=== PATIENT | female | born 1935 | race Caucasian/White ===

== ENCOUNTER → 2024-07-06 | Outpatient (CLI) | payer MEDICARE, SELFPAY ==
[2024-07-06 15:17] LABS: Alanine Aminotransferase 10 U/L (10-49); Albumin, Serum 4.3 gm/dL (3.4-4.8); Albumin/Globulin Ratio 1.9 (1.2-2.2); Alkaline Phosphatase 103 U/L (46-116); Anion Gap 2 (7-16); Aspartate Amino Transferase 25 U/L (0-34); BUN/Creatinine Ratio 18 Ratio (12-20); Bilirubin,Total 0.5 mg/dL (0.3-1.2); Blood Urea Nitrogen 23 mg/dL (9-23); Calcium 10.2 mg/dL (8.3-10.6); Calcium (Corrected) 10.2 mg/dL (8.5-10.1); Carbon Dioxide 32.7 mMol/L (20.0-31.0); Chloride 103 mMol/L (98-107); Creatinine (Component) 1.3 mg/dL (0.6-1.3); Globulin 2.3 gm/dL (2.3-3.5); Glucose 99 mg/dL (74-106); Osmolality,Calculated 279 (275-295); Potassium 4.9 mMol/L (3.4-5.1); Sodium 138 mMol/L (136-145); Total Protein 6.6 gm/dL (5.7-8.2); eGFR 40 See Note
== END | disposition home or self-care (01) ==
LOC: CDIM 13:30 → COPL 13:42
PROVIDERS: PCP Internal Medicine; Referring Provider Internal Medicine; Visit Provider Internal Medicine
DX: N18.9 Chronic kidney disease, unspecified (principal)
CPT/HCPCS: 36415; 80053

== ENCOUNTER 2024-12-03 22:46 | Inpatient (IN) | payer MEDICARE, SELFPAY ==
[2024-12-03 22:59] VITALS: BP 182/80; PULSE 69; RESP 16; TEMP 36.9; O2SAT 95
--- NOTE | 2024-12-03 23:29 | EDNOTE_ITS ---
Altered Mental Status RME/HPI General Chief Complaint: Altered Mental Status Stated Complaint: BP HIGH, CONFUSED PAST 2 DAYS Time Seen by Provider: 12/03/24 23:35 Arrival date/time: 12/03/24 22:46 RME / HPI RME / HPI narrative: This section includes all my notes and documentations, including HPI, PE, and ED course. Cristopher Guillen MD HPI: 89yo female with a history of Afib on Coumadin, pacemaker brought in by her son presents to the ED for possible AMS, this Wednesday night. Patient's son states he left on Wednesday night to go [employer], reporting he called the patient yesterday (Wednesday) at 1830 and felt she was off . When he got home to the patient at 1900 yesterday, he found the patient to be confused and answering questions incorrectly. He states the patient's symptoms were worsening today. Patient communicates that she is having trouble saying what she wants to say. Son states the patient can normally take care of herself and ambulatory and is able to communicate normally. No fever, chills or an other associated symptoms. No other complaints reported. ROS: All negative except as documented in HPI. Physical Exam: General: Alert. Uncertain about orientation. Probable aphasia noted. Eyes: Conjunctivae and lids clear. EOMI. PERRL. ENT: No nasal congestion. Pharynx normal. Tympanic membrane normal bilaterally. Neck: Supple. No carotid bruit. No JVD. Heart: Irregularly irregular. Lungs: No respiratory distress. Good air movement. No rhonchi, wheezing, rales. Abdomen: Soft and nontender. Back: No CVA tenderness. Legs: No clubbing, cyanosis, edema. Skin: Warm and dry. Neuro: Alert and oriented X 3. Cranial Nerves II-XII grossly intact. No peripheral motor deficits. I reviewed all diagnostic test results. My interpretation of the EKG is paced rhythm (68 bpm). Cristopher Guillen MD My review of the CT head report is large area of edema in the left frontal lobe. My review of the CT angio head and neck report is no cerebral large vessel arterial occlusions or thrombus. Blood tests unremarkable. Urine specimen pending. At this point, diagnoses include left frontal lobe ischemic stroke or mass. Patient remained stable. I discussed the case with our teleneurologist and hospitalist. About the presentation and exam and diagnostics and treatments here. And need of further care in the hospital. Will accept the patient. Cristopher Guillen MD Related Data Home Medications ?Medication ?Instructions ?Recorded ?Confirmed pravastatin 40 mg tablet 40 mg PO HS Hypercholesterol emia 10/22/09 12/13/18 (Pravachol) ##0 MULTIVITAMIN (MULTI VITAMIN DAILY) 1 tab PO QDAY Suppl ements ##0 08/23/13 12/13/18 irbesartan 300 mg tablet (Avapro) 300 mg PO QDAY Hyper tension #0 tabs 08/23/13 12/13/18 warfarin 7.5 mg tablet (Coumadin) 7.5 mg PO QDAY #0 ta bs 06/17/17 12/13/18 biotin 5,000 mcg sublingual tablet 5,000 mcg sublingua l QDAY 11/15/18 12/13/18 furosemide 40 mg tablet 40 mg PO QDAY 11/15/1812/13 hydrocodone 5 mg-acetaminophen 325 1 tab PO .prn PRN 0 11/15/18 12/13/18 mg tablet spironolactone 25 mg tablet 25 mg PO QDAY 11/15/1810/28 Allergies Allergy/AdvReac Type Severity Reaction Status Date / Time NKA* Allergy Uncoded 12/13/18 15:15 Review of Systems Review of Systems Systems Reviewed: All systems reviewed, normal except as documented Past Medical History Past Medical History CARDIAC: Negative Congestive Heart Failure RESPIRATORY: Negative Chronic Obstructive Pulmonary Disease (COPD) GENITOURINARY: Positive Renal Disease ENDOCRINE: Negative Diabetes Mellitus Type 1 or Diabetes Mellitus Type 2 Social History SMOKING STATUS: Former smoker ED Exam Narrative Physical exam: As noted in HPI. Course Course Course Narrative: Stroke alert initiated at 2329. Quality Measures Suspected type of Stroke: Acute Ischemic Tenecteplase given: Reason(s) TPA not given: Use of NOAC (eliquis, xarelto, or pradaxa) not given stroke Orders Category Date Time Status Bedside Blood Glucose NOW Care 12/03/24 23:30 Active COVID-19 Screening Questionnaire NOW Care 12/04/24 00:42 Active Hide Examiner NOW Care 12/03/24 23:30 Active Continuous Pulse Oximetry NOW Care 12/03/24 23:30 Completed Decision to Admit X1 Care 12/04/24 00:42 Completed EKG (ED ONLY) *Do not use* NOW Care 12/03/24 23:30 Completed In and Out Catheter NEEDED Care 12/03/24 23:30 Active Insert IV NOW Care 12/03/24 23:30 Active NIH Stroke Scale now Care 12/03/24 23:30 Active NPO NOW Care 12/03/24 23:30 Active Nurse Swallow Screen x1 Care 12/03/24 23:30 Active Consult to Neurology / Tele-Neurology Routine Cons 12/03/24 23:[address] angio stroke protocol Stat Exams 12/03/24 23:[address] stroke protocol Stat Exams 12/03/24 23:30 Completed EKG (ED Only) Stat Exams 12/03/24 23:30 Ordered XR chest 1V portable Stat Exams 12/03/24 23:29 Taken Arterial Blood Gas Stat Lab 12/04/24 00:19 Completed B-Type Natriuretic Peptide Stat Lab 12/03/24 23:30 Completed CBC Stat Lab 12/03/24 23:30 Completed Comprehensive Metabolic Panel Stat Lab 12/03/24 23:30 Completed Free T4 (Free Thyroxine) Stat Lab 12/03/24 23:30 Completed Magnesium Stat Lab 12/03/24 23:30 Completed Partial Thromboplastin Time Stat Lab 12/03/24 23:30 Completed Prothrombin Time with INR Stat Lab 12/03/24 23:30 Completed TSH [Thyroid Stimulating Hormone] Stat Lab 12/03/24 23:30 Completed Troponin I Stat Lab 12/03/24 23:30 Completed Urinalysis Stat Lab 12/03/24 23:30 Ordered Urine Culture Stat Lab 12/03/24 23:30 Ordered Labetalol IV [Trandate IV] Med 12/03/24 23:29 Active 10 mg IVP Q15M PRN Ondansetron Inj [Zofran Inj] Med 12/03/24 23:29 Active 4 mg IVP Q4HR PRN Sodium Chloride 0.9% 1000 ml [Ns] 1,000 ml Med 12/03/24 23:30 Active IV X1 Oxygen Delivery NOW RT 12/03/24 23:30 Active Vital Signs Vital signs: Vital Signs Temperature 98.5 F 12/03/24 22:59 Pulse Rate 69 12/03/24 22:59 Respiratory Rate 16 12/03/24 22:59 Blood Pressure 182/80 H 12/03/24 22:59 Pulse Oximetry (%) 95 05/25/25 22:59 Oxygen Delivery Method Room Air 12/03/24 22:59 Altered Mental Status MDM Narrative MDM Narrative:: Scribe Attestation: 12/03/24 Ayanna Castro am scribing for and in the presence of Dr. Guillen. 89yo female with a history of aFib, pacemaker brought in by her son presents to the ED for AMS. Patient's son states he left on Wednesday night to go [facility], reporting he called the patient yesterday at 1830 and felt she was off . When he got home to the patient at 1900 yesterday, he found the patient to be somewhat confused and occasionally answering questions correctly. He states the patient's symptoms were worsening today and the patient was unable to get her words out, so he brought her in for evaluation. Son states the patient can normally take care of herself and is able to communicate normally. No fever, chills or an other associated symptoms. No other complaints reported. Patient data External records reviewed:: [facility] previous records (Per chart review, patient has no previous ED visits or admissions to this facility.) Clinical information provided by:: family Social determinants that could affect healthcare access:: none Patient has the following chronic illnesses:: aFib, pacemaker How is presenting disease/condition affected by chronic disease/condition?: uneffected by Evaluation data The following diagnostics were reviewed and interpreted by me:: lab results, radiology exam(s) and EKG tracing(s) (Paced rhythm (68 bpm). Cristopher Guillen MD) Lab and/or radiology exams considered but not ordered:: none Interpretation Summary: I reviewed all diagnostic test results. My interpretation of the EKG is paced rhythm (68 bpm). Cristopher Guillen MD My review of the CT head report is large area of edema in the left frontal lobe. My review of the CT angio head and neck report is no cerebral large vessel arterial occlusions or thrombus. Blood tests unremarkable. Urine specimen pending. Medications / Prescriptions Medications or Prescriptions considered but not ordered:: none Medication administrations:: Medication Administration History Sodium Chloride (Ns) 1,000 mls @ 100 mls/hr IV X1 ONE Stop: 12/04/24 09:29 Last Admin: 12/04/24 00:24 Dose: 100 mls/hr Documented By: CVL Labetalol HCl (Labetalol Inj 5 Mg/Ml Vial 20 Ml) 10 mg IVP Q15M PRN PRN Reason: HYPER Last Admin: 12/04/24 00:04 Dose: 10 mg Documented By: CVL Ondansetron HCl (Ondansetron Inj 2 Mg/Ml Inj 2 Ml) 4 mg IVP Q4HR PRN PRN Reason: NAUSEA OR VOMITING Stop: 01/02/25 23:28 IV fluid Consultations Consultation(s) initiated? (list below): Yes Consultation #1 (Physician, Specialty, Details): I discussed the case with our telehealth neurologist. About the presentation and exam and diagnostics and treatments here. Recommended hospitalization for further care. Time: 00:05 Diagnosis Differential diagnosis altered mental status: altered mental status, delirium, dementia, hypoglycemia, hyponatremia, subarachnoid hemorrhage, sepsis and other (CVA, TIA, [employer] tumor) Most likely diagnosis given after review of the tests above:: [employer] tumor versus ischemic stroke Admission Indicated Admission indicated?: indicated Explain why admission is indicated or not indicated:: [employer] tumor versus ischemic stroke Admission Request Was there a request for admission?: Yes Admission Attestation Admission request attestation: Discussed case with Hospitalist service regarding admission. Discussed patients ED course, exam findings, labs, and radiology results. The Hospitalist [agrees] to accept the patient for admission. Disposition Plan Disposition Plan: Admit Critical Care Time Critical Care Time Critical Care Time: Yes Total Critical Care Time (min.): 45 Attestation: Due to a high probability of clinically significant, life threatening deterioration, the patient required my highest level of preparedness to intervene emergently and I personally spent this critical care time directly and personally managing the patient. This critical care time included obtaining a history; examining the patient; ordering and review of studies; arranging urgent treatment with development of a management plan; evaluation of patient's response to treatment; frequent reassessment; and discussions with family and other providers. It was exclusive of separately billable procedures and treating other patients and teaching time. Cristopher Guillen MD Discharge Plan Plan Patient Disposition: Admit Acute Care w/in Hospital Prescriptions/Referrals Prescriptions/Med Rec: No Action furosemide 40 mg tablet 40 mg PO QDAY spironolactone 25 mg tablet 25 mg PO QDAY biotin 5,000 mcg tablet, sublingual 5,000 mcg SUBLINGUAL QDAY hydrocodone-acetaminophen 5-325 mg tablet 1 tab PO .prn PRN pravastatin [Pravachol] 40 MG tablet 40 mg PO HS Qty: 0 irbesartan [Avapro] 300 MG tablet 300 mg PO QDAY Qty: 0 MULTIVITAMIN (MULTI VITAMIN DAILY) 1 EACH tablet 1 tab PO QDAY Qty: 0 warfarin [Coumadin] 7.5 MG tablet 7.5 mg PO QDAY Qty: 0 Referrals: Serenity Ferrari MD [Primary Care Provider] - In 1 week Problem List Clinical Impression: Stroke-like symptoms Patient/Caregiver Discharge Instructions Print Language: Kittitian Stand Alone Forms: Carol Award Info., Patient Portal Info Letter
--- NOTE | 2024-12-03 23:29 | XR_ITS ---
Examination: AP chest single view Technique one AP portable semiupright chest single view Date and time: December 04, 2024 0013 hours Comparison August 02, 2013 INDICATIONS: Shortness of breath today. FINDINGS: Mild CHF Moderate enlargement cardiac contour Prominent vascular congestion with early pulmonary edema Stable nodule in the right upper lobe Ventricular cardiac leads satisfactory position Prominent osteopenia IMPRESSION: Mild CHF
--- NOTE | 2024-12-03 23:30 | XR_ITS ---
Examination: CTA carotids with intravenous contrast CTA brain, head with intravenous contrast. 2-D sagittal, coronal reconstructions. 3-D reconstructions. Exam date and time: December 03, 2024 at 11:45 PM INDICATIONS: Stroke alert, onset focal neurologic deficit today CTDI: vol (mGy) 11.9 DLP: (mGycm) 432 Technique: Multiple CTA axial brain, head carotid images post intravenous contrast injection 75 cc, [id number]. 2-D sagittal, coronal reconstructions. 3-D reconstructions, 3-D post processing including vascular maximum intensity projection images. Low dose protocols were performed. One or more of the following dose reduction techniques were used; automated exposure control, adjustment of the mA and/or KV according to patient size, use of iterative reconstruction technique. Findings: Poorly defined left thyroid nodules History calcification right carotid bifurcation, 70% plus stenosis right carotid bifurcation origin right internal carotid artery 40% stenosis left carotid bifurcation origin left internal carotid artery Codominant vertebral arteries with no critical stenoses No cerebral large vessel arterial occlusions or thrombus The large area of edema in the left frontal lobe does not demonstrate definite abnormal enhancement IMPRESSION: 70% plus stenosis right carotid bifurcation origin right internal carotid artery 40% stenosis left carotid bifurcation origin left internal carotid artery No cerebral large vessel arterial occlusions or thrombus
--- NOTE | 2024-12-03 23:30 | XR_ITS ---
Examination: CT brain head without contrast. 2-D sagittal coronal reconstructions Date and time of exam:December 03, 2024 1140 hours INDICATIONS: Stroke alert, onset focal neurologic deficit today and yesterday CTDI: vol (mGy):51.6 DLP: (mGycm):954 Technique: Multiple CT axial sections of the brain have been obtained, 5 mm slice thickness. Contrast has not been administered. 2-D sagittal, coronal reconstructions have been obtained Low dose protocols were performed. One or more of the following dose reduction techniques were used; automated exposure control, adjustment of the mA and/or KV according to patient size, use of iterative reconstruction technique. Findings: No significant ventricular enlargement. Large area of edema in the left frontal lobe depressing the left frontal horn, axial image 71 No mass effect or midline shift Basal cisterns are not remarkable. Fourth ventricle is midline. Cranial vault intact. Impression: Large area of edema in the left frontal lobe, differential including acute infarct, underlying neoplastic lesion not excluded Recommend brain MR I follow-up pre and postcontrast
--- NOTE | 2024-12-03 23:32 | PC.NURSE ---
Case [id number]/03/2024 23:31:49 [facility] Case # [id number] has been created.
[2024-12-03 23:58] VITALS: PULSE 70
[2024-12-03 23:59] VITALS: BP 201/103; PULSE 71; RESP 20; O2SAT 91
[2024-12-04] VITALS (14 sets, daily range): BP systolic 125–201; BP diastolic 47–103; PULSE 70–106; RESP 18–92; TEMP 36.1–36.3; O2SAT 93–99; BMI 13.0
[2024-12-04] MEDS: LABETALOL INJ 5 MG/ML VIAL 20 ML 10 MG IVP ×2 (00:04→05:39)
--- NOTE | 2024-12-04 00:06 | PD.TNEURO ---
Tele Neuro Consultation Consultation Date 12/04/24 Most Recent Vital Signs Last Vital Signs Temp 98.5 F 12/03/24 22:59 Pulse 71 12/03/24 23:59 Resp 20 12/03/24 23:59 BP 201/103 H 12/03/24 23:59 Pulse Ox 91 L 12/03/24 23:59 O2 Del Method Room Air 12/03/24 23:59 Consultation Narrative [facility] TeleNeurology Consult Services Patient Name:???Kathy Laird Date of :???[id number] Identification Number:??? Date of Service:???12/03/2024 23:31:49 Diagnosis:?I63.89 - Cerebrovascular accident (CVA) due to other mechanism ([facility]) Impression: ?1. Left frontal lobe lesion ?- LNW >24h ?- CTH with large area of edema in Left frontal lobe differential includes malignancy and subacute ischemic stroke, MRI will help confirm. No significant midline shift ?- no hx of stroke ?- .cta R carotid 70% and L carotid bifurcation 40%, no LVO ? Our recommendations are outlined below. Recommendations: ? Stroke/Telemetry Floor ? Neuro Checks (Q4) ? Bedside Swallow Eval ? DVT Prophylaxis ? IV Fluids, Normal Saline ? Head of Bed 30 Degrees ? Euglycemia and Avoid Hyperthermia (PRN Acetaminophen) ?routine MRI brain with and without contrast ?a1c, lipid panel ?PT/OT/speech consult Sign Out: ? Discussed with Emergency Department Provider Advanced Imaging: CTA Head and Neck Completed. LVO:No Patient is not a candidate for ROMEO Metrics: Last Known Well: Unknown Dispatch Time: 12/03/2024 23:31:49 Arrival Time: 12/03/2024 22:46:00 Initial Response Time: 12/03/2024 23:37:03Symptoms: speech change. Initial patient interaction: 12/03/2024 23:39:01 NIHSS Assessment Completed: 12/03/2024 23:50:08Patient is not a candidate for Thrombolytic. Thrombolytic Medical Decision: 12/03/2024 23:39:01Patient was not deemed candidate for Thrombolytic because of following reasons: LKW outside 4.[address] Head: I personally reviewed all the CT images that were available to me and it showed: large area of edema in Left frontal lobe. Primary Provider Notified of Diagnostic Impression and Management Plan on: 12/04/2024 00:04:42 History of Present Illness:Patient is a 89 year old Female. Patient was brought by private transportation with symptoms of speech change. Kathy Laird is an 89yo woman pmh afib, pacemaker, renal cancer s/p nephrectomy, bladder cancer, She was brought to the ER by her son because she has not been acting normally the last two days. Patient says she is having difficulty finding words. She also has a new Right sided facial droop. No history of stroke. Past Medical History: ?There is no history of Diabetes Mellitus ?There is no history of Atrial Fibrillation ?There is no history of Stroke ?There is no history of Seizures Medications: Anticoagulant use:??Yes?coumadin No Antiplatelet use Reviewed EMR for current medications Allergies:? Reviewed Social History: Smoking: No Alcohol Use: No Drug Use: No Family History: There is no family history of premature cerebrovascular disease pertinent to this consultation ROS : 14 Points Review of Systems was performed and was negative except mentioned in HPI. Past Surgical History: There Is No Surgical History Contributory To Today?s Visit Examination: BP(182/80),?Pulse(69), 1A: Level of Consciousness - Alert; keenly responsive?+ 0 1B: Ask Month and Age - Both Questions Right?+ 0 1C: Blink Eyes & Squeeze Hands - Performs Both Tasks?+ 0 2: Test Horizontal Extraocular Movements - Normal?+ 0 3: Test Visual Chatterjee - No Visual Loss?+ 0 4: Test Facial Palsy (Use Grimace if Obtunded) - Minor paralysis (flat nasolabial fold, smile asymmetry)?+ 1 5A: Test Left Arm Motor Drift - No Drift for 10 Seconds?+ 0 5B: Test Right Arm Motor Drift - No Drift for 10 Seconds?+ 0 6A: Test Left Leg Motor Drift - No Drift for 5 Seconds?+ 0 6B: Test Right Leg Motor Drift - No Drift for 5 Seconds?+ 0 7: Test Limb Ataxia (FNF/Heel-Brush) - No Ataxia?+ 0 8: Test Sensation - Normal; No sensory loss?+ 0 9: Test Language/Aphasia - Mild-Moderate Aphasia: Some Obvious Changes, Without Significant Limitation?+ 1 10: Test Dysarthria - Normal?+ 0 11: Test Extinction/Inattention - No abnormality?+ 0 NIHSS Score:?2 NIHSS Free Text :?R NLF. Pre-Morbid Modified [place] Scale:0 Points = No symptoms at all Spoke with :?ER physician This consult was conducted in real time using interactive audio and video technology. Patient was informed of the technology being used for this visit and agreed to proceed. Patient located in hospital and provider located at home/office setting. Patient is being evaluated for possible acute neurologic impairment and high probability of imminent or life-threatening deterioration. I spent total of 26 minutes providing care to this patient, including time for face to face visit via telemedicine, review of medical records, imaging studies and discussion of findings with providers, the patient and/or family. Dr Aravind So [facility] For Inpatient follow-up with [facility] physician please call [facility] at . As we are not an outpatient service for any post hospital discharge needs please contact the hospital for assistance. If you have any questions for the [facility] physicians or need to reconsult for clinical or diagnostic changes please contact us via [facility] at .
[2024-12-04 00:24] LABS: Basophils # (Auto) 0.1 Thou/mm3 (0.0-0.2); Basophils % (Auto) 0 % (0-2.5); Eosinophils # (Auto) 0.2 Thou/mm3 (0.0-0.5); Eosinophils % (Auto) 2 % (0-10); Hematocrit 36.3 % (36.0-46.0); Hemoglobin 12.5 g/dL (12.0-16.0); Immature Granulocytes % (Auto) 0 % (0-0); Immature Granulocytes Auto 0.05 Thou/mm3 (0.00-0.00); Lymphocytes # (Auto) 2.2 Thou/mm3 (1.0-4.8); Lymphocytes % (Auto) 19 % (10-50); Mean Corpuscular HGB Conc 34.4 g/dl (31.0-37.0); Mean Corpuscular Hemoglobin 31.3 pg (25.0-35.0); Mean Corpuscular Volume 91 fL (80-100); Monocytes # (Auto) 0.9 Thou/mm3 (0.0-0.8); Monocytes % (Auto) 8 % (0-12); Neutrophils # (Auto) 8.4 Thou/mm3 (1.8-7.7); Neutrophils % (Auto) 71 % (37-80); Nucleated Red Blood Cell % 0 /100 WBC (0); Platelet Count 422 Thou/mm3 (140-440); RDW Standard Deviation 42.5 fL (36.4-46.3); Red Blood Count 3.99 Miln/mm3 (4.00-5.20); White Blood Count 11.8 Thou/mm3 (3.6-11.0)
[2024-12-04] MEDS: SODIUM CHLORIDE 0.9% 1000 ML 1,000 ML 100 ML IV (00:24)
[2024-12-04 00:25] LABS: Base Excess 4 (-3-3); HCO3 28 mEq/L (20-26); Inspired Oxygen, FIO2 21 %; O2 Saturation 94 % (91-98); PCO2 43 mmHg (32.0-48.0); PO2 61 mmHg (83-108); pH, Arterial 7.43 (7.35-7.45)
[2024-12-04 00:26] LABS: Allen Test Performed/OK; Puncture Site Right Radial
[2024-12-04 00:38] LABS: B-Type Natriuretic Peptide 53 pg/mL (0-100); INR 1.1 (0.9-1.3); Partial Thromboplastin Time 24.2 Seconds (22.0-36.0); Prothrombin Time 12.2 Seconds (9.0-12.2)
[2024-12-04 00:43] LABS: Alanine Aminotransferase 19 U/L (10-49); Albumin, Serum 4.2 gm/dL (3.4-4.8); Albumin/Globulin Ratio 1.3 (1.2-2.2); Alkaline Phosphatase 102 U/L (46-116); Anion Gap 9 (7-16); Aspartate Amino Transferase 32 U/L (0-34); BUN/Creatinine Ratio 20 Ratio (12-20); Bilirubin,Total 0.4 mg/dL (0.3-1.2); Blood Urea Nitrogen 26 mg/dL (9-23); Calcium 10.7 mg/dL (8.3-10.6); Calcium (Corrected) 10.7 mg/dL (8.5-10.1); Carbon Dioxide 28.7 mMol/L (20.0-31.0); Chloride 104 mMol/L (98-107); Creatinine (Component) 1.3 mg/dL (0.6-1.3); Globulin 3.3 gm/dL (2.3-3.5); Glucose 98 mg/dL (74-106); Magnesium 1.8 mg/dL (1.6-2.6); Osmolality,Calculated 287 (275-295); Potassium 4.1 mMol/L (3.4-5.1); Sodium 142 mMol/L (136-145); Total Protein 7.5 gm/dL (5.7-8.2); eGFR 40 See Note
--- NOTE | 2024-12-04 01:45 | PD.RESHP ---
Documentation for date of: 12/04/24 [facility] History of Present Illness History of present illness: Kathy Laird is 89 yr female with PMH of hypertension, bladder cancer s/p resection, left kidney cancer status post resection, CAD, A-fib on warfarin, pacemaker placement presenting to ED brought in by son after some confusion and aphasia. History was obtained from son. He stated that family had left to go on a camping trip this weekend. While communicating over the phone, he had noticed that there was some confusion which is not typical for his mother. She was having some lapses in short term memory. Also noticed that she was having some word finding difficulty which did not make sense. Typically she is alert and oriented x3, able to complete ADLs without any difficulty, very independent. Patient is also able to walk on her own with some support with a cane. She follows cardiology Dr. Reno and PCP Dr. Ferrari closely. Her last visit with Dr. Ferrari approximately 1 week ago where he was concerned for high blood pressure. There was some changes made to medication regimen and patient was instructed to follow-up. Son stated that blood pressure readings at home range 150?160s systolic. Patient is denying any headache, altered vision, diaphoresis, chest pain, weakness, lower extremity swelling. At bedside she is oriented to self only. In ED, BP 182/80, HR 69, RR 16, afebrile saturating adequately on room air. Mild leukocytosis of 12 on CBC. Hemoglobin stable. Electrolytes within normal limits. BUN 26, creatinine 1.3, glucose 98, TSH 2.0. UA pending. Teleneurology was consulted after stroke alert initiated. CT head showed edema in the left frontal lobe, CTA head neck negative for LVO. She was given IV labetaol 10 mg and NS in ED. She is not a candidadate for thrombolytics and LWK unknown. NIHSS score from my evaluation at bedside was 2. Official recs from tele neuro are pending. Patient to be admitted for workup of acute CVA. PMH: As noted above PSH: Bilateral knee surgery, hip replacement, pacemaker placement, bladder cancer resection, left nephroureterectomy FamHx: Father had history of CAD, sister from stroke Social: Lives in [place] with family, denies smoking, denies drinking. Compliant with medications. Meds: irbesartan 300mg, furosemide 40mg, spironolactone 25 mg, febuxostat 40mg, pravastatin 40mg, wafarin 7.5mg, 7-325 hydrocodone TID (offical rec pending) Allergies: NKDA Review of Systems Review of Systems Systems Reviewed: All systems reviewed, normal except as documented Exam Vital Signs Temp Pulse Resp BP Pulse Ox O2 Del Method 98.5 F 70 20 189/66 H 94 L Room Air 12/03/24 22:59 12/04/24 01:00 12/04/24 01:00 12/04/24 01:00 12/04/24 01:00 12/04/24 01:00 Narrative Exam General: elderly female, No acute distress, cooperative HEENT: NCAT, No JVD noted. Mucosa moist. Pupils are equal and reactive to light bilaterally Cardiovascular: Normal S1 and S2. Regular rate and rhythm. Respiratory: Lungs are clear to auscultation bilaterally. No wheezing or crackles heard. Abdomen: Soft, nontender, not distended, normal bowel sounds. Skin: Warm to touch, dry, no rashes noted Musculoskeletal: No gross injuries. Able to move all 4 extremities. Neuro: No focal neuro deficits. strength 5/5 upper and LE, No pitting edema. AOx2, some word finding difficulties. Psych: Normal affect and mood Results: Labs 12/04/24 00:06 12/04/24 00:06 Labs: Short CBC 12/04/24 Range/Units 00:06 WBC 11.8 H (3.6-11.0) Thou/mm3 Hgb 12.5 (12.0-16.0) g/dL Hct 36.3 (36.0-46.0) % Plt Count 422 (140-440) Thou/mm3 BMP 12/04/24 00:06 Sodium 142 Potassium 4.1 Chloride 104 Carbon Dioxide 28.7 BUN 26 H Creatinine 1.3 Glucose 98 Calcium 10.7 H Cardiac Enzymes 12/04/24 Range/Units 00:06 Troponin I 0.020 (0.0-0.045) ng/mL Liver Function 12/04/24 Range/Units 00:06 Total Bilirubin 0.4 (0.3-1.2) mg/dL AST 32 (0-34) U/L ALT 19 (10-49) U/L Alkaline Phosphatase 102 (46-116) U/L Albumin 4.2 (3.4-4.8) gm/dL ABG Interpretation ABG results: 12/04/24 00:19 ABG pH 7.43 ABG pCO2 43 ABG pO2 61 L ABG HCO3 28 H ABG O2 Saturation 94 ABG Base Excess 4 H Quality Measures Quality Measures stroke Suspected type of Stroke: Acute Ischemic Tenecteplase given: Reason(s) Tenecteplase not given: Use of NOAC (eliquis, xarelto, or pradaxa) not given Rehab services: PT evaluation ordered VTE Prophylaxis: not ordered Antithrombotic by day 2:: contraindicated (describe) (Imaging has not yet confirmed exact type of stroke) Statin ordered: not ordered Anticoagulation ordered for A-fib or flutter (current or hx): contraindicated Advance care planning discussed with:: patient and child Medications Home Medications and Allergies Home Medications ?Medication ?Instructions ?Recorded ?Confirmed ?Type pravastatin 40 mg tablet 40 mg PO HS Hypercholesterolemia 10/22/09 12/13/18 History (Pravachol) ##0 MULTIVITAMIN (MULTI VITAMIN DAILY) 1 tab PO QDAY Supplements ##0 08/23/13 12/13/18 History irbesartan 300 mg tablet (Avapro) 300 mg PO QDAY Hypertension #0 tabs 08/23/13 12/13/18 History warfarin 7.5 mg tablet (Coumadin) 7.5 mg PO QDAY #0 tabs 06/17/17 12/13/18 History biotin 5,000 mcg sublingual tablet 5,000 mcg sublingual QDAY 11/15/18 12/13/18 History furosemide 40 mg tablet 40 mg PO QDAY 11/15/18 12/13/18 History hydrocodone 5 mg-acetaminophen 325 1 tab PO .prn PRN 11/15/18 12/13/18 History mg tablet spironolactone 25 mg tablet 25 mg PO QDAY 11/15/18 12/13/18 History Allergies Allergy/AdvReac Type Severity Reaction Status Date / Time NKA* Allergy Uncoded 12/13/18 15:15 Visit Medications Acetaminophen (Acetaminophen 325 Mg Tablet) 650 mg PO Q6H PRN PRN Reason: Fever >100.3 or pain Stop: 01/03/25 01:38 Sodium Chloride (Ns) 1,000 mls @ 100 mls/hr IV X1 ONE Stop: 12/04/24 09:29 Last Admin: 12/04/24 00:24 Dose: 100 mls/hr Labetalol HCl (Labetalol Inj 5 Mg/Ml Vial 20 Ml) 10 mg IVP Q15M PRN PRN Reason: HYPER Last Admin: 12/04/24 00:04 Dose: 10 mg Ondansetron HCl (Ondansetron Inj 2 Mg/Ml Inj 2 Ml) 4 mg IVP Q4HR PRN PRN Reason: NAUSEA OR VOMITING Stop: 01/02/25 23:28 Ondansetron HCl (Ondansetron Inj 2 Mg/Ml Inj 2 Ml) 4 mg IVP Q6H PRN; Protocol PRN Reason: NAUSEA OR VOMITING Stop: 01/03/25 01:38 Sennosides (Senna Tablet) 1 tab PO QDAY PRN; Protocol PRN Reason: constipation Stop: 01/03/25 01:38 Assessment & Plan Plan Kathy Laird is 89 yr female with PMH of hypertension, bladder cancer s/p resection, left kidney cancer status post resection, CAD, A-fib on warfarin, pacemaker placement presenting to ED brought in by son after some confusion and aphasia. History was obtained from son. Patient to be admitted for workup of acute CVA. #workup CVA Brought in by son after he noticed change in baseline mentation. She was more confused and seeming forgetful, answering questions oddly. Electrolytes within normal limits. BUN 26, creatinine 1.3, glucose 98, TSH 2.0. UA pending. Teleneurology was consulted after stroke alert initiated. CT head showed edema in the left frontal lobe, CTA head neck negative for LVO. She was given IV labetaol 10 mg and NS in ED. She is not a candidadate for thrombolytics and LWK unknown. NIHSS score from my evaluation at bedside was 2. ?Dr. Molina was consulted recommendations pending. ? Echo with bubble study pending ? MRI pending ?Physical therapy referral pending ? N.p.o. until patient passes bedside swallow screen ? Head of bed elevation 30 degrees ? Continue permissive hypertension for 24 hours ? 10 mg IV labetalol every 4 hours as needed if BP 220/120 ? Med recs pending--restart atorvastatin 40 mg p.o. daily once passed swallow screen ?Lipid panel pending -NS maintenance at 80 cc/hr #Hx HTN #Atrial fibrillation #Hx HLD Patient has pacemeker follows Dr. Reno outpatient. She takes irbesartan 300mg, furosemide 40mg, spironolactone 25 mg, febuxostat 40mg, pravastatin 40mg, wafarin 7.5mg INR 1.1, PT 12.2 -holding anti hypertensives and blood thinners in setting of stroke -neuro recs pending #Chronic pain In knees and hips. She takes 7-325 hydrocodone TID. -day team to resume if needed Health maintenance: Dispo: tele for CVA workup FEN: NPO until passes swallow screen DVT prophylaxis: SCDs CODE STATUS: Full code (son needs to check document that that had patient's request. He can't remember at this time. Day team should follow up with final decision.) The patient's management plan was discussed with my attending physician Dr. Horowitz. Vickie Kenny, PGY-1 Attending Provider Attestation/Addendum 89-year-old female with atrial fibrillation status post pacemaker, hypertension, bladder cancer, kidney cancer, hyperlipidemia was admitted after she presented with aphasia and confusion. The patient was noted to have short-term memory lapses. Patient was admitted for CVA workup. She was hypertensive in the ER.
[2024-12-04 01:56] LABS: Collection Type, Urine Clean Catch
--- NOTE | 2024-12-04 02:16 | ECHO_ITS ---
Transthoracic Echo Report Ht (in): 65 Wt (lb): 240 Exam Location: Echo Lab Status: Inpatient Multi Disciplined Language Analyst: Lisa Bass Indications: Procedure Performed: BP: 109 / 57 HR: 97 Technical Quality: Technically difficult study MEASUREMENTS (Male / Female) Normal Values 2D ECHO LV Diastolic Diameter PLAX 4.9 cm 4.2 - 5.9 / 3.9 - 5.3 cm LV Systolic Diameter PLAX 3.5 cm IVS Diastolic Thickness 1.2 cm 0.6 - 1.0 / 0.6 - 0.9 cm LVPW Diastolic Thickness 1.4 cm 0.6 - 1.0 / 0.6 - 0.9 cm LV Relative Wall Thickness 0.5 LVOT Diameter 1.8 cm LA Systolic Diameter LX 4.9 cm 3.0 - 4.0 / 2.7 - 3.8 cm LA Volume Index 33.6 cm?/m? 16 - 28 cm?/m? M-MODE Aortic Root Diameter MM 2.0 cm LA Systolic Diameter MM 5.6 cm LA Ao Ratio MM 2.8 AV Cusp Separation MM 1.5 cm DOPPLER AV Peak Velocity 116.3 cm/s AV Peak Gradient 5.4 mmHg AV Mean Gradient 2.7 mmHg AV Velocity Time Integral 26.7 cm LVOT Peak Velocity 93.1 cm/s LVOT Peak Gradient 3.5 mmHg LVOT Velocity Time Integral 20.1 cm LVOT Cardiac Index 2168.1 cm?/min?m? AV Area Cont Eq vti 1.9 cm? AV Area Cont Eq pk 2.0 cm? MV Peak Velocity 131.0 cm/s MV Peak Gradient 6.9 mmHg MV Mean Velocity 73.1 cm/s MV Mean Gradient 3.0 mmHg MV Area PHT 3.7 cm? MR Peak Velocity 315.0 cm/s MR Peak Gradient 39.7 mmHg Mitral E Point Velocity 120.0 cm/s Mitral A Point Velocity 44.1 cm/s Mitral E to A Ratio 2.7 LV E' Lateral Velocity 6.9 cm/s Mitral E to LV E' Lateral Ratio 17.4 LV E' Septal Velocity 4.8 cm/s Mitral E to LV E' Septal Ratio 25.1 TR Peak Velocity 306.5 cm/s TR Peak Gradient 37.6 mmHg PV Peak Velocity 80.1 cm/s PV Peak Gradient 2.6 mmHg FINDINGS Left Ventricle Normal left ventricular size and wall thickness. The ejection fraction is visually estimated at 40-45%. Global left ventricular systolic function is mildly decreased. Right Ventricle The right ventricle is normal in size and systolic function. The estimated right ventricular systolic pressure, 56 mmHg. RAP 5. Left Atrium The left atrium is normal by two-dimensional, color flow and Doppler imaging with no structural abnormalities, no thrombus formation present. Right Atrium The right atrium is normal by two-dimensional imaging, color flow and Doppler imaging with no structural abnormalities, no thrombus formation present. Atrial Septum The interatrial septum appears normal with no evidence of a shunt. Aorta The aorta is normal by two-dimensional, color flow and Doppler interrogation. Mitral Valve Mild mitral regurgitation. Mild mitral valve stenosis. Mild mitral regurgitation. Moderate mitral annular calcification. Aortic Valve The aortic valve is trileaflet and normal by two-dimensional, color flow and Doppler interrogation. There is no significant aortic valve regurgitation. Tricuspid Valve The tricuspid valve is normal by two-dimensional, color flow and Doppler interrogation. There is mild to moderate tricuspid valve regurgitation. Pulmonic Valve The pulmonic valve is not well visualized. There is no significant pulmonic valve regurgitation. Vessels The pulmonary artery appears normal. The inferior vena cava pulmonary and hepatic veins appear normal. Pericardium The pericardium is normal by two-dimensional imaging. There is no significant pericardial effusion. CONCLUSIONS Indication: LV evaluation Normal LV size and wall thickness. Estimated EF 40-45%. Global left ventricular systolic function is mildly decreased. The RV is normal in size and systolic function. RVSP, 56 mmHg. RAP 5. Mild MR. Mild MS. Moderate MAC. There is mild to moderate TR. Ameya Reno (Electronically Signed) Final Date: 04 Dec 2024 12:11
[2024-12-04 02:19] LABS: Bacteria,Urine 4+; Bilirubin,Urine Negative (Negative); Blood,Urine Trace (Negative); Clarity,Urine Turbid (Clear/Hazy); Color,Urine Yellow (Lt Yel-Yel); Glucose, Urine Negative (Negative); Ketones,Urine Negative (Negative); Leukocyte Esterase,Urine Positive (Negative); Nitrite,Urine Negative (Negative); Protein,Urine 1+ (Neg - Trace); RBC,Urine 15 /hpf (0-3); Squamous Epithelial Cell,Urine 43 /hpf (0-5); Urobilinogen,Urine Negative mg/dL (0.0-1.0); WBC,Urine 95 /hpf (0-5)
[2024-12-04 06:43] LABS: Basophils # (Auto) 0.1 Thou/mm3 (0.0-0.2); Basophils % (Auto) 1 % (0-2.5); Eosinophils # (Auto) 0.2 Thou/mm3 (0.0-0.5); Eosinophils % (Auto) 1 % (0-10); Hematocrit 35.5 % (36.0-46.0); Hemoglobin 11.8 g/dL (12.0-16.0); Immature Granulocytes % (Auto) 0 % (0-0); Immature Granulocytes Auto 0.04 Thou/mm3 (0.00-0.00); Lymphocytes # (Auto) 2.4 Thou/mm3 (1.0-4.8); Lymphocytes % (Auto) 21 % (10-50); Mean Corpuscular HGB Conc 33.2 g/dl (31.0-37.0); Mean Corpuscular Hemoglobin 30.8 pg (25.0-35.0); Mean Corpuscular Volume 93 fL (80-100); Monocytes % (Auto) 8 % (0-12); Neutrophils # (Auto) 7.7 Thou/mm3 (1.8-7.7); Neutrophils % (Auto) 68 % (37-80); Nucleated Red Blood Cell % 0 /100 WBC (0); Platelet Count 380 Thou/mm3 (140-440); RDW Standard Deviation 43.2 fL (36.4-46.3); Red Blood Count 3.83 Miln/mm3 (4.00-5.20); White Blood Count 11.3 Thou/mm3 (3.6-11.0)
[2024-12-04 06:56] LABS: Alanine Aminotransferase 17 U/L (10-49); Albumin, Serum 3.9 gm/dL (3.4-4.8); Albumin/Globulin Ratio 1.3 (1.2-2.2); Alkaline Phosphatase 92 U/L (46-116); Anion Gap 10 (7-16); Aspartate Amino Transferase 34 U/L (0-34); BUN/Creatinine Ratio 22 Ratio (12-20); Bilirubin,Total 0.4 mg/dL (0.3-1.2); Blood Urea Nitrogen 26 mg/dL (9-23); Calcium 9.5 mg/dL (8.3-10.6); Calcium (Corrected) 9.6 mg/dL (8.5-10.1); Carbon Dioxide 29.4 mMol/L (20.0-31.0); Cardiac Risk Estimate 6.6 RATIO (3.7-5.6); Chloride 108 mMol/L (98-107); Cholesterol 178 mg/dL (132-200); Creatinine (Component) 1.2 mg/dL (0.6-1.3); Globulin 2.9 gm/dL (2.3-3.5); Glucose 120 mg/dL (74-106); HDL Cholesterol 27 mg/dL (40-60); LDL Cholesterol,Calculated 114 mg/dL (0-130); Magnesium 1.6 mg/dL (1.6-2.6); Osmolality,Calculated 298 (275-295); Phosphorous 2.7 mg/dL (2.4-5.1); Potassium 3.7 mMol/L (3.4-5.1); Sodium 147 mMol/L (136-145); Total Protein 6.8 gm/dL (5.7-8.2); Triglycerides 183 mg/dL (30-150); eGFR 44 See Note
[2024-12-04] MEDS: Magnesium Sulfate 2 GM Ivpb 2 GM/50 ML BAG IV (08:56)
--- NOTE | 2024-12-04 09:44 | ESPR_ITS ---
Documentation for date of: 12/04/24 Subjective Subjective Interval history: Pt examined at bedside today. No acute overnight events. Pt appears to be AAOx3, she says she came in because she had a bowel movement while she was at home and not at the bathroom. She also denies having any urinary symptoms including dysuria. She denies and fever or chills. Says she has never had a stroke before. She lives in a mobile home with her family. No other complaints at this time. Expresses that she does want DNR code status. Exam Vital Signs Temp Pulse Resp BP Pulse Ox O2 Del Method O2 Flow Rate 97.2 F 70 20 173/101 H 98 Nasal Cannula 2 12/04/24 07:57 12/04/24 07:57 12/04/24 07:57 12/04/24 07:57 12/04/24 07:57 12/04/24 07:57 12/04/24 07:57 Narrative Exam General: AAOx3, NAD, obese female, pleasant HEENT: Moist mucous membranes, conjunctiva clear, EOMI, PERRLA, Cardiovascular: S1, S2, radial pulses +2 bilat, RRR Pulmonary: CTAB bilat no cough, no wheezing GI: No tenderness to light or deep palpitation, no guarding, rigidity, rebound tenderness or distension Extremities: No presence of trace or pitting edema in lower extremities bilaterally, dorsalis pedis pulses +2 bilaterally Neuro: AAOx3, no expressive or global aphasia at this time, pt is currently getting ultrasound done at this time limited motor exam, slight R sided facial droop Psych: Able to cooperate Objective Labs 12/04/24 06:07 12/04/24 06:07 Labs: Laboratory Results - last 24 hr 12/04/24 12/04/24 12/04/24 00:06 00:19 01:40 WBC 11.8 H RBC 3.99 L Hgb 12.5 Hct 36.3 MCV 91 MCH 31.3 MCHC 34.4 RDW Std Deviation 42.5 Plt Count 422 Neut % (Auto) 71 Lymph % (Auto) 19 [place] % (Auto) 8 Eos % (Auto) 2 Baso % (Auto) 0 Neut # (Auto) 8.4 H Lymph # (Auto) 2.2 [place] # (Auto) 0.9 H Eos # (Auto) 0.2 Baso # (Auto) 0.1 Immature Gran # (Auto) 0.05 H Absolute Nucleated RBC 0.00 Immature Gran % 0 Nucleated RBC % 0 PT 12.2 INR 1.1 APTT 24.2 Puncture Site Right Radial ABG pH 7.43 ABG pCO2 43 ABG pO2 61 L ABG HCO3 28 H ABG O2 Saturation 94 ABG Base Excess 4 H FiO2 21 Sodium 142 Potassium 4.1 Chloride 104 Carbon Dioxide 28.7 Anion Gap 9 BUN 26 H Creatinine 1.3 Estim Creat Clear Calc Not Performed. eGFR 40 L BUN/Creatinine Ratio 20 Glucose 98 Calculated Osmolality 287 Calcium 10.7 H Corrected Calcium 10.7 H Phosphorus Magnesium 1.8 Total Bilirubin 0.4 AST 32 ALT 19 Alkaline Phosphatase 102 Troponin I 0.020 B-Natriuretic Peptide 53 Total Protein 7.5 Albumin 4.2 Globulin 3.3 Albumin/Globulin Ratio 1.3 Triglycerides Cholesterol LDL Cholesterol, Calc HDL Cholesterol Cholesterol/HDL Ratio TSH 2.00 Free T4 1.00 Ur Collection Type Clean Catch Urine Color Yellow Urine Clarity Turbid A Urine pH 7.0 Ur Specific [place] 1.010 Urine Protein 1+ A Urine Glucose (UA) Negative Urine Ketones Negative Urine Blood Trace Urine Nitrite Negative Urine Bilirubin Negative Urine Urobilinogen (Auto) Negative Ur Leukocyte Esterase Positive Urine RBC 15 H Urine WBC 95 H Ur Squamous Epith Cells 43 H Urine Bacteria 4+ A 12/04/24 06:07 WBC 11.3 H RBC 3.83 L Hgb 11.8 L Hct 35.5 L MCV 93 MCH 30.8 MCHC 33.2 RDW Std Deviation 43.2 Plt Count 380 D Neut % (Auto) 68 Lymph % (Auto) 21 [place] % (Auto) 8 Eos % (Auto) 1 Baso % (Auto) 1 Neut # (Auto) 7.7 Lymph # (Auto) 2.4 [place] # (Auto) 1.0 H Eos # (Auto) 0.2 Baso # (Auto) 0.1 Immature Gran # (Auto) 0.04 H Absolute Nucleated RBC 0.00 Immature Gran % 0 Nucleated RBC % 0 PT INR APTT Puncture Site ABG pH ABG pCO2 ABG pO2 ABG HCO3 ABG O2 Saturation ABG Base Excess FiO2 Sodium 147 H Potassium 3.7 Chloride 108 H Carbon Dioxide 29.4 Anion Gap 10 BUN 26 H Creatinine 1.2 Estim Creat Clear Calc Not Performed. eGFR 44 L BUN/Creatinine Ratio 22 H Glucose 120 H Calculated Osmolality 298 H Calcium 9.5 Corrected Calcium 9.6 Phosphorus 2.7 Magnesium 1.6 Total Bilirubin 0.4 AST 34 ALT 17 Alkaline Phosphatase 92 Troponin I 0.030 B-Natriuretic Peptide Total Protein 6.8 Albumin 3.9 Globulin 2.9 Albumin/Globulin Ratio 1.3 Triglycerides 183 H Cholesterol 178 LDL Cholesterol, Calc 114 HDL Cholesterol 27 L Cholesterol/HDL Ratio 6.6 H TSH Free T4 Ur Collection Type Urine Color Urine Clarity Urine pH Ur Specific [place] Urine Protein Urine Glucose (UA) Urine Ketones Urine Blood Urine Nitrite Urine Bilirubin Urine Urobilinogen (Auto) Ur Leukocyte Esterase Urine RBC Urine WBC Ur Squamous Epith Cells Urine Bacteria ABG Interpretation ABG results: 12/04/24 00:19 ABG pH 7.43 ABG pCO2 43 ABG pO2 61 L ABG HCO3 28 H ABG O2 Saturation 94 ABG Base Excess 4 H Quality Measures Quality Measures stroke Suspected type of Stroke: Acute Ischemic Tenecteplase given: Reason(s) Tenecteplase not given: Use of NOAC (eliquis, xarelto, or pradaxa) not given Rehab services: PT evaluation ordered VTE Prophylaxis: not indicated Antithrombotic by day 2:: not indicated (describe) Statin ordered: >75 y/o moderate or high intensity dose Anticoagulation ordered for A-fib or flutter (current or hx): not indicated Advance care planning discussed with:: patient Assessment & Plan Assessment Current Active Medications: Generic Name Dose Route Start Last Admin Trade Name Freq PRN Reason Stop Dose Admin Acetaminophen 650 mg 12/04/24 01:39 Acetaminophen 325 Mg Tablet PO 01/03/25 01:38 Q6H PRN Fever >100.3 or pain Magnesium Sulfate 2 gm in 50 mls @ 25 mls/hr 12/04/24 08:20 12/04/24 08:56 Magnesium Sulfate Ivpb IV 12/04/24 10:19 25 mls/hr X1 ONE Administration Labetalol HCl 10 mg 12/04/24 06:39 Labetalol Inj 5 Mg/Ml Vial 20 Ml IVP 01/03/25 06:38 X1 PRN hypertension Ondansetron HCl 4 mg 12/04/24 01:39 Ondansetron Inj 2 Mg/Ml Inj 2 Ml IVP 01/03/25 01:38 Q6H PRN NAUSEA OR VOMITING Protocol Sennosides 1 tab 12/04/24 01:39 Senna Tablet PO 01/03/25 01:38 QDAY PRN constipation Protocol Plan Assessment Kathy Laird is 89 yr female with PMH of hypertension, bladder cancer s/p resection, left kidney cancer status post resection, CAD, A-fib on warfarin, pacemaker placement presenting to ED brought in by son after some confusion and aphasia. History was obtained from son. Patient to be admitted for workup of acute CVA. #CVA rule out #Expressive aphasia Teleneurology was consulted after stroke alert initiated, NIHSS Score 2: CT head showed edema in the left frontal lobe CTA head neck shows 70% stenosis of right carotid, left carotid bifurcation shows 40% stenosis LDL 114 Will need to speak with cardiology in regards to patient having a pacemaker and if patient can get MRI Patient will need to be cleared by neurology for DAPT and anticoagulation TSH: 2.0; Previous A1c of 5.5 in 2022 Plan: ? Neurology consulted, appreciate recs ? MR stroke protocol -pending pacemaker compatibility, cardiology attempting to gain that information ? Speech therapy ? Physical therapy ? Echo ? Neurochecks every 4 hours ? Head of bed elevation 30 degrees ? DVT prophylaxis ? Bedrest ? Permissive hypertension ? Lipitor 40 mg at bedtime #Chronic A-fib with pacemaker #Subtherapeutic INR [id number]: 5 HAS-BLED: 2 Rhythm: Paced, controlled AC: On warfarin at home however there may be a component of medication noncompliance as INR is subtherapeutic Patient will need to be cleared by neurology for anticoagulation Patient says she takes warfarin at home, however her INR is 1.1, goal of INR in A-fib for her would be 2.0-3.0 Plan: ? Cardiology consulted, appreciate recs ? Trend INR ? Keep potassium magnesium above 4 and 2 respectively ? Telemetry #Hx HTN #Hx HLD Chronic LDL 114 Plan: ? Lipitor 40 mg HS ? Permissive HT #Hx of osteoarthritis Takes [place] 7.5 at home Plan: ? [place] 7.5 TID PRN upon med rec #Health Maintenance Disposition: Telemetry DVT prophylaxis: SCDs at this time GI prophylaxis: Not indicated at this time Diet: Cardiac CODE STATUS: DNR Patient seen and care discussed with my attending physician, Dr. Holland Castillo, PGY-1 Attending Provider Attestation/Addendum I have discussed and was present for the essential components of the history, physical examination, diagnosis, and treatment plan with the resident. I agree with the patient's care as documented by the resident and amended herein by me. Denis Lino DO. Although this document has been carefully reviewed, there may still be some phonetic and other typographical errors. These errors are purely grammatical due to imperfections in the software program and should not be construed in any way to compromise the substance of the patient's medical care during this visit.
--- NOTE | 2024-12-04 11:40 | PD.IMCONS ---
HPI Data of Consult Requesting Physician: Del Horowitz MD Primary Care Provider: Serenity Ferrari MD Consult Narrative History of present illness: This is a 89 yr female with PMH of hypertension, bladder cancer s/p resection, left kidney cancer status post resection, CAD, A-fib on warfarin, pacemaker placement Patient seen in the emergency room with confusion and aphasia possibility of CVA Cardiology consultation requested for cardiac clearance for MRI Patient is known to me from multiple outpatient visits currently hospitalizations Patient has chronic atrial fibrillation for which she is on anticoagulation Patient's tangential CAT scan shows large area of edema in the left frontal lobe 70% stenosis of the right carotid artery cc:: cc: Del Horowitz MD Meds Home Medications and Allergies Home Medications ?Medication ?Instructions ?Recorded ?Confirmed ?Type pravastatin 40 mg tablet 40 mg PO HS Hypercholesterolemia 10/22/09 12/04/24 History (Pravachol) ##0 MULTIVITAMIN (MULTI VITAMIN DAILY) 1 tab PO QDAY Supplements ##0 08/23/13 12/04/24 History irbesartan 300 mg tablet (Avapro) 300 mg PO QDAY Hypertension #0 tabs 08/23/13 12/04/24 History warfarin 7.5 mg tablet (Coumadin) 7.5 mg PO QDAY #0 tabs 06/17/17 12/04/24 History biotin 5,000 mcg sublingual tablet 5,000 mcg sublingual QDAY 11/15/18 12/04/24 History furosemide 40 mg tablet 40 mg PO QDAY 11/15/18 12/04/24 History hydrocodone 5 mg-acetaminophen 325 1 tab PO .prn PRN pain 11/15/18 12/04/24 History mg tablet spironolactone 25 mg tablet 25 mg PO QDAY 11/15/18 12/04/24 History hydrocodone 7.5 mg-acetaminophen 1 tab PO Q6H PRN pain 12/04/24 12/04/24 History 325 mg tablet Allergies Allergy/AdvReac Type Severity Reaction Status Date / Time No Known Allergies Allergy Unverified 12/04/24 10:21 Exam Vital Signs Temp Pulse Resp BP Pulse Ox O2 Del Method O2 Flow Rate 97.2 F 70 20 173/101 H 98 Nasal Cannula 2 12/04/24 07:57 12/04/24 07:57 12/04/24 07:57 12/04/24 07:57 12/04/24 07:57 12/04/24 07:57 12/04/24 07:57 Routine HEENT Exam Head: Present normocephalic and atraumatic Eye: Present EOMI and PERRL ENT: Present mucous membranes moist Routine Neck Exam Neck: Present supple and trachea midline Routine Respiratory Exam Respiratory: Present chest non-tender, lungs clear, normal breath sounds and no resp distress Routine Cardiovascular Exam Cardiovascular: Present RRR Routine Abdominal Exam Abdominal: Present soft and normoactive bowel sounds Routine Extremities Exam Extremities: Present full ROM Routine Skin Exam Skin: Present intact, dry and warm Routine Neurological Exam Neurological: Present alert, oriented X3 and CN II-XII intact Routine Psychiatric Exam Psychiatric: Present normal affect and normal thought process Results Labs 12/04/24 06:07 12/04/24 06:07 Labs: Short CBC 12/04/24 12/04/24 Range/Units 00:06 06:07 WBC 11.8 H 11.3 H (3.6-11.0) Thou/mm3 Hgb 12.5 11.8 L (12.0-16.0) g/dL Hct 36.3 35.5 L (36.0-46.0) % Plt Count 422 380 D (140-440) Thou/mm3 BMP 12/04/24 12/04/24 00:06 06:07 Sodium 142 147 H Potassium 4.1 3.7 Chloride 104 108 H Carbon Dioxide 28.7 29.4 BUN 26 H 26 H Creatinine 1.3 1.2 Glucose 98 120 H Calcium 10.7 H 9.5 Cardiac Enzymes 12/04/24 12/04/24 Range/Units 00:06 06:07 Troponin I 0.020 0.030 (0.0-0.045) ng/mL Liver Function 12/04/24 12/04/24 Range/Units 00:06 06:07 Total Bilirubin 0.4 0.4 (0.3-1.2) mg/dL AST 32 34 (0-34) U/L ALT 19 17 (10-49) U/L Alkaline Phosphatase 102 92 (46-116) U/L Albumin 4.2 3.9 (3.4-4.8) gm/dL Urine 12/04/24 Range/Units 01:40 Urine Color Yellow (Lt Yel-Yel) Urine Clarity Turbid A (Clear/Hazy) Urine pH 7.0 (5.0-7.0) Ur Specific [place] Burn 1.010 (1.001-1.035) Urine Protein 1+ A (Neg - Trace) Urine Glucose (UA) Negative (Negative) ABG Interpretation ABG results: 12/04/24 00:19 ABG pH 7.43 ABG pCO2 43 ABG pO2 61 L ABG HCO3 28 H ABG O2 Saturation 94 ABG Base Excess 4 H Assessment and Plan Assessment and plan (1) Cerebrovascular accident: Status: Acute (2) History of permanent cardiac pacemaker placement: Status: Acute (3) Hypertension: Status: Acute (4) Atrial fibrillation: Status: Acute (5) Renal cancer: Status: Acute Additional Assessment & Plan Additional Plan: Patient has an MRI compatible pacemaker Continue current medical management patient has a large left frontal infarct Needs neurology clearance to start anticoagulation 70% left internal carotid artery stenosis noted Currently patient hemodynamically stable
[2024-12-04] MEDS: HYDROcodone/APAP 7.5/325 TABLET 1 TAB PO (14:40)
[2024-12-04] MEDS: MORPHINE SULF INJ 10 MG/ML VIAL IVP (16:25)
[2024-12-04] MEDS: POTASSIUM CHLORIDE 20 mEq TABCR 40 MEQ PO (16:26)
--- NOTE | 2024-12-04 16:26 | PC.SS ---
Rounding note: Pending ECHO, PT, and neurology recommendations.
--- NOTE | 2024-12-04 16:32 | PC.SS ---
Initial assessment completed with patient at bedside. Patient confirmed demographic information. Patient resides alone. She reports her son lives in a separate house on the same property. Patient?s surrogate medical decisionmaker is her son Froy Laird [phone]. Patient stated she requires assistance with ADLs. She reports her son and family assist her with ADLs. Patient uses a cane for ambulation. Patient stated she uses 2.5L of oxygen daily. Preferred pharmacy: [facility]. PCP: Dr. Serenity Ferrari. Patient unable to recall last appointment date. Next of Kin: Son Froy Laird [phone], D/C Plan: Home, son to provide transportation
[2024-12-04] MEDS: ATORVASTATIN CALCIUM 20 MG TABLET 40 MG PO (20:05)
[2024-12-05] VITALS (12 sets, daily range): BP systolic 160–200; BP diastolic 78–107; PULSE 62–109; RESP 12–24; TEMP 36.2–37.2; O2SAT 93–99; BMI 13.0
[2024-12-05 05:49] LABS: Basophils # (Auto) 0.1 Thou/mm3 (0.0-0.2); Basophils % (Auto) 1 % (0-2.5); Eosinophils # (Auto) 0.5 Thou/mm3 (0.0-0.5); Eosinophils % (Auto) 4 % (0-10); Hemoglobin 11.7 g/dL (12.0-16.0); Immature Granulocytes % (Auto) 1 % (0-0); Immature Granulocytes Auto 0.06 Thou/mm3 (0.00-0.00); Lymphocytes # (Auto) 2.1 Thou/mm3 (1.0-4.8); Lymphocytes % (Auto) 17 % (10-50); Mean Corpuscular HGB Conc 33.4 g/dl (31.0-37.0); Mean Corpuscular Hemoglobin 31.1 pg (25.0-35.0); Mean Corpuscular Volume 93 fL (80-100); Monocytes % (Auto) 8 % (0-12); Neutrophils # (Auto) 8.4 Thou/mm3 (1.8-7.7); Neutrophils % (Auto) 70 % (37-80); Nucleated Red Blood Cell % 0 /100 WBC (0); Platelet Count 335 Thou/mm3 (140-440); RDW Standard Deviation 43.9 fL (36.4-46.3); Red Blood Count 3.76 Miln/mm3 (4.00-5.20)
[2024-12-05 06:15] LABS: Alanine Aminotransferase 19 U/L (10-49); Albumin, Serum 3.9 gm/dL (3.4-4.8); Albumin/Globulin Ratio 1.2 (1.2-2.2); Alkaline Phosphatase 91 U/L (46-116); Anion Gap 7 (7-16); Aspartate Amino Transferase 31 U/L (0-34); BUN/Creatinine Ratio 15 Ratio (12-20); Bilirubin,Total 0.8 mg/dL (0.3-1.2); Blood Urea Nitrogen 18 mg/dL (9-23); Calcium (Corrected) 10.1 mg/dL (8.5-10.1); Carbon Dioxide 27.6 mMol/L (20.0-31.0); Chloride 105 mMol/L (98-107); Creatinine (Component) 1.2 mg/dL (0.6-1.3); Globulin 3.2 gm/dL (2.3-3.5); Glucose 104 mg/dL (74-106); Osmolality,Calculated 281 (275-295); Phosphorous 2.6 mg/dL (2.4-5.1); Potassium 4.5 mMol/L (3.4-5.1); Sodium 140 mMol/L (136-145); Total Protein 7.1 gm/dL (5.7-8.2); eGFR 44 See Note
[2024-12-05 06:32] LABS: Glucose Estimated Average 111 mg/dL (80-131); Hemoglobin A1C 5.5 % Hgb (4.8-6.0)
--- NOTE | 2024-12-05 07:47 | PD.IMPROG ---
Documentation for date of: 12/05/24 Subjective Subjective Interval history: feels ok Exam Vital Signs Temp Pulse Resp BP Pulse Ox O2 Del Method O2 Flow Rate 97.9 F 70 19 193/98 H 95 Nasal Cannula 1 12/05/24 04:00 12/05/24 04:00 12/05/24 04:00 12/05/24 04:00 12/05/24 04:00 12/05/24 04:00 12/05/24 04:00 Routine HEENT Exam Head: Present normocephalic and atraumatic Eye: Present EOMI and PERRL ENT: Present mucous membranes moist Routine Neck Exam Neck: Present supple and trachea midline Routine Respiratory Exam Respiratory: Present chest non-tender, lungs clear, normal breath sounds and no resp distress Routine Cardiovascular Exam Cardiovascular: Present RRR Routine Abdominal Exam Abdominal: Present soft and normoactive bowel sounds Routine Extremities Exam Extremities: Present full ROM Routine Skin Exam Skin: Present intact, dry and warm Routine Neurological Exam Neurological: Present alert, oriented X3 and CN II-XII intact Routine Psychiatric Exam Psychiatric: Present normal affect and normal thought process Objective Labs 12/05/24 05:05 12/05/24 05:05 Labs: Laboratory Results - last 24 hr 12/04/24 12/05/24 06:07 05:05 WBC 12.0 H RBC 3.76 L Hgb 11.7 L Hct 35.0 L MCV 93 MCH 31.1 MCHC 33.4 RDW Std Deviation 43.9 Plt Count 335 D Neut % (Auto) 70 Lymph % (Auto) 17 [place] % (Auto) 8 Eos % (Auto) 4 Baso % (Auto) 1 Neut # (Auto) 8.4 H Lymph # (Auto) 2.1 [place] # (Auto) 1.0 H Eos # (Auto) 0.5 Baso # (Auto) 0.1 Immature Gran # (Auto) 0.06 H Absolute Nucleated RBC 0.00 Immature Gran % 1 H Nucleated RBC % 0 Sodium 140 Potassium 4.5 D Chloride 105 Carbon Dioxide 27.6 Anion Gap 7 BUN 18 Creatinine 1.2 Estim Creat Clear Calc Not Performed. eGFR 44 L BUN/Creatinine Ratio [address] Glu mg/dL 111 Hemoglobin A1c 5.5 Calculated Osmolality 281 Calcium 10.0 Corrected Calcium 10.1 Phosphorus 2.6 Magnesium 2.0 Total Bilirubin 0.8 AST 31 ALT 19 Alkaline Phosphatase 91 Troponin I 0.030 Total Protein 7.1 Albumin 3.9 Globulin 3.2 Albumin/Globulin Ratio 1.2 ABG Interpretation ABG results: 12/04/24 00:19 ABG pH 7.43 ABG pCO2 43 ABG pO2 61 L ABG HCO3 28 H ABG O2 Saturation 94 ABG Base Excess 4 H Assessment & Plan A&P Narrative continue current meds Time Spent With Patient Time: Total time spent is greater than 50% in coordination of care (as documented) at patient's floor/unit and/or counseling patient:
[2024-12-05] MEDS: LABETALOL INJ 5 MG/ML VIAL 20 ML 10 MG IVP (09:28)
[2024-12-05 09:35] LABS: INR 1.1 (0.9-1.3); Prothrombin Time 12.1 Seconds (9.0-12.2)
[2024-12-05] MEDS: HYDROcodone/APAP 7.5/325 TABLET 1 TAB PO ×2 (09:41→20:45)
--- NOTE | 2024-12-05 10:00 | PD.RESPRO ---
Documentation for date of: 12/05/24 Subjective Subjective Interval history: Pt examined at bedside today. No acute overnight events. Pt reports she is doing well. She has no complaints at this time. She is wondering when she is going to get an MRI. No other complaints at this time. Exam Vital Signs Temp Pulse Resp BP Pulse Ox O2 Del Method O2 Flow Rate 97.8 F 109 H 12 109/105 H 99 Nasal Cannula 1 12/05/24 23:47 12/05/24 23:47 12/05/24 23:47 12/05/24 23:47 12/05/24 23:47 12/05/24 23:47 12/05/24 23:47 Narrative Exam General: AAOx3, NAD, obese female, pleasant HEENT: Moist mucous membranes, conjunctiva clear, EOMI, PERRLA, Cardiovascular: S1, S2, radial pulses +2 bilat, RRR Pulmonary: CTAB bilat no cough, no wheezing GI: No tenderness to light or deep palpitation, no guarding, rigidity, rebound tenderness or distension Extremities: No presence of trace or pitting edema in lower extremities bilaterally, dorsalis pedis pulses +2 bilaterally Neuro: AAOx3, no expressive or global aphasia at this time, pt is currently getting ultrasound done at this time limited motor exam, slight R sided facial droop Psych: Able to cooperate Objective Labs 12/06/24 05:05 12/06/24 05:05 Labs: Laboratory Results - last 24 hr 12/05/24 05:05 WBC 12.0 H RBC 3.76 L Hgb 11.7 L Hct 35.0 L MCV 93 MCH 31.1 MCHC 33.4 RDW Std Deviation 43.9 Plt Count 335 D Neut % (Auto) 70 Lymph % (Auto) 17 [place] % (Auto) 8 Eos % (Auto) 4 Baso % (Auto) 1 Neut # (Auto) 8.4 H Lymph # (Auto) 2.1 [place] # (Auto) 1.0 H Eos # (Auto) 0.5 Baso # (Auto) 0.1 Immature Gran # (Auto) 0.06 H Absolute Nucleated RBC 0.00 Immature Gran % 1 H Nucleated RBC % 0 PT 12.1 INR 1.1 Sodium 140 Potassium 4.5 D Chloride 105 Carbon Dioxide 27.6 Anion Gap 7 BUN 18 Creatinine 1.2 Estim Creat Clear Calc Not Performed. eGFR 44 L BUN/Creatinine Ratio [address] Glu mg/dL 111 Hemoglobin A1c 5.5 Calculated Osmolality 281 Calcium 10.0 Corrected Calcium 10.1 Phosphorus 2.6 Magnesium 2.0 Total Bilirubin 0.8 AST 31 ALT 19 Alkaline Phosphatase 91 Total Protein 7.1 Albumin 3.9 Globulin 3.2 Albumin/Globulin Ratio 1.2 ABG Interpretation ABG results: 12/04/24 00:19 ABG pH 7.43 ABG pCO2 43 ABG pO2 61 L ABG HCO3 28 H ABG O2 Saturation 94 ABG Base Excess 4 H Quality Measures Quality Measures stroke Suspected type of Stroke: Acute Ischemic Tenecteplase given: Reason(s) Tenecteplase not given: Use of NOAC (eliquis, xarelto, or pradaxa) not given Rehab services: PT evaluation ordered VTE Prophylaxis: pharmaceutical Antithrombotic by day 2:: ordered and not indicated (describe) Statin ordered: >75 y/o moderate or high intensity dose Anticoagulation ordered for A-fib or flutter (current or hx): not indicated Advance care planning discussed with:: patient Assessment & Plan Assessment Current Active Medications: Generic Name Dose Route Start Last Admin Trade Name Freq PRN Reason Stop Dose Admin Acetaminophen 650 mg 12/04/24 10:11 Acetaminophen 325 Mg Tablet PO 01/03/25 01:38 Q6H PRN Fever >100.3 or pain Hydrocodone Bitart/Acetaminophen 1 tab 12/04/24 10:09 12/05/24 20:45 Hydrocodone/Apap 7.5/325 Tablet PO 12/09/24 10:08 1 tab Q6HR PRN Administration PAIN SCALE 4-10(Mod-Sev Aspirin 81 mg 12/06/24 09:00 Aspirin Ec 81 Mg Tabec PO 01/05/25 08:59 QDAY KETAN Atorvastatin Calcium 40 mg 12/04/24 21:00 12/05/24 20:45 Atorvastatin Calcium 20 Mg Tablet PO 01/03/25 20:59 40 mg HS KETAN Administration Ondansetron HCl 4 mg 12/04/24 01:39 Ondansetron Inj 2 Mg/Ml Inj 2 Ml IVP 01/03/25 01:38 Q6H PRN NAUSEA OR VOMITING Protocol Sennosides 1 tab 12/04/24 01:39 Senna Tablet PO 01/03/25 01:38 QDAY PRN constipation Protocol Plan Assessment Kathy Eitan is 89 yr female with PMH of hypertension, bladder cancer s/p resection, left kidney cancer status post resection, CAD, A-fib on warfarin, pacemaker placement presenting to ED brought in by son after some confusion and aphasia. History was obtained from son. Patient to be admitted for workup of acute CVA. #CVA rule out #Expressive aphasia Teleneurology was consulted after stroke alert initiated, NIHSS Score 2: CT head showed edema in the left frontal lobe CTA head neck shows 70% stenosis of right carotid, left carotid bifurcation shows 40% stenosis LDL 114 Will need to speak with cardiology in regards to patient having a pacemaker and if patient can get MRI Patient will need to be cleared by neurology for DAPT and anticoagulation TSH: 2.0; Previous A1c of 5.5 in [address] to resume A/C Plan: ? Neurology consulted, appreciate recs ? MR stroke protocol -pending pacemaker compatibility, cardiology attempting to gain that information ? Loading ASA ? CT Head ? Speech therapy ? Physical therapy ? Echo ? Neurochecks every 4 hours ? Head of bed elevation 30 degrees ? DVT prophylaxis ? Bedrest ? Permissive hypertension ? Lipitor 40 mg at bedtime #Chronic A-fib with pacemaker #Subtherapeutic INR [id number]: 5 HAS-BLED: 2 Rhythm: Paced, controlled AC: On warfarin at home however there may be a component of medication noncompliance as INR is subtherapeutic Patient will need to be cleared by neurology for anticoagulation Patient says she takes warfarin at home, however her INR is 1.1, goal of INR in A-fib for her would be 2.0-3.0 Pending Pacemaker approval for MRI Plan: ? Cardiology consulted, appreciate recs ? Trend INR ? Keep potassium magnesium above 4 and 2 respectively ? Telemetry #Hx HTN #Hx HLD Chronic LDL 114 Plan: ? Lipitor 40 mg HS ? Permissive HT #Hx of osteoarthritis Takes [place] 7.5 at home Plan: ? [place] 7.5 TID PRN upon med rec #Health Maintenance Disposition: Telemetry DVT prophylaxis: SCDs at this time GI prophylaxis: Not indicated at this time Diet: Cardiac CODE STATUS: DNR Patient seen and care discussed with my attending physician, Dr. Bina Castillo, PGY-1 Attending Provider Attestation/Addendum I reviewed labs, imaging, EKG, home medications and prior available records. Face to face evaluation was performed by me. I have personally examined the patient and discussed assessment and plan with the IM team. I reviewed the resident note and agree with the plan with exceptions as below. CVA symptoms Acute encephalopathy Right carotid stenosis Atrial fibrillation with controlled ventricular rate Status post permanent pacemaker Hypertension Hyperlipidemia Mental status improved Carotid ultrasound showed significant right carotid stenosis at 70% INR is 1.1 and she is on warfarin. Discussed with neurology: May repeat CT head prior to starting direct anticoagulation Pending MRI. Pending cardiology clearance of the pacemaker prior to the study Continue aspirin and atorvastatin
--- NOTE | 2024-12-05 11:00 | PD.RESCONSUL ---
HPI Data of Consult Requesting Physician: Del Horowitz MD Admitting Provider: Del Horowitz MD Attending Provider: Del Horowitz MD Primary Care Provider: Serenity Ferrari MD Consult Narrative Reason for consult: motor aphasia History of present illness: The patient is a 89-year-old female with a previous medical history of hypertension, urogenital cancer status post left kidney, bladder resection, CAD, A-fib on warfarin, status post pacemaker placement who was brought to the ED due to confusion and speech impairment that started approximately on Wednesday last week. Due to the aphasia most of the history was taken through the conversation with the family and chart review. Initially they attributed the change in the mental status due to being overmedicated. Later on the weekend the family went for a camping trip, but communicating over the phone they noticed the confusion and speech changes that are unusual for the patient. On the baseline she is independent, AAO x 3, ambulates on her own using cane. 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 In the ED initial blood pressure was 182/80, pulse 69, respiratory rate 16, saturating well on [address] head showed large area of edema in the left frontal lobe. Teleneuro was consulted, differential diagnosis includes malignancy and subacute ischemic stroke. MRI was ordered, cardiology cleared patient for the MRI. Head CTA showed stenosis of the right carotid artery 70% and left carotid bifurcation 40%, negative for large vessel occlusion. Echo showed ejection fraction of 40 to 45%. PAtient was not a candidate for tPA due to LKN>4.5 hours. Labs showed WBC count 11.8, hemoglobin 12.5, platelets 422, INR 1.1, sodium 140, potassium 4.5, chloride 105, carbon dioxide 27.6, glucose 104, cholesterol 178, LDL 114, HDL 27. Neurology was consulted for subacute stroke workup. Social history: lives with her family, uses cane for ambulation, independent in ADL. Former smoker, used to smoke 40 years ago, occasionally drinks a glass of wine. 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 Home medications: Furosemide 40 mg, hydrocodone?acetaminophen, irbesartan, pravastatin, spironolactone, warfarin. Surgeries: Knee replacement, hip replacement, pacemaker placement, status post bladder cancer resection, left nephroureterectomy cc:: cc: Del Horowitz MD Review of Systems Review of Systems Systems Reviewed: All systems reviewed, normal except as documented Past Medical History Past Medical History CARDIAC: Positive Cardiac Disorders, Atrial Fibrillation, Coronary Artery Disease, Hypercholesterolemia and Hypertension RESPIRATORY: Negative Chronic Obstructive Pulmonary Disease (COPD) GENITOURINARY: Positive Genitourinary Disorders (bladder and kidney cancer) MUSCULOSKELETAL: Positive Degenerative Joint Disease ENDOCRINE: Negative Diabetes Mellitus Type 1 or Diabetes Mellitus Type 2 Social History SMOKING STATUS: Former smoker Exam Vital Signs Temp Pulse Resp BP Pulse Ox O2 Del Method O2 Flow Rate 98.9 F 70 20 196/91 H 95 Nasal Cannula 1 12/05/24 08:00 12/05/24 09:28 12/05/24 08:00 12/05/24 09:28 12/05/24 08:00 12/05/24 08:00 12/05/24 08:00 Narrative Exam Gen: Well-developed and well-nourished. HEENT: NCAT, PERRLA, EOMI, MMM, anicteric conjunctivae. CVS: normal S1 and S2. RRR. No M/R/G. Resp: CTA B/L. No rhonchi, rales, crackles or wheezing. Abd: soft, non-tender, non-distended. BS+ in all 4 quadrants. MSK: Good ROM in BUE & BLE. No edema or rash. Neuro: Mild to moderate motor aphasia. CN II-XII grossly intact. Strength 5/5 in BUE & BLE. Alert and oriented x1 (reports her name, but unable to reports time and place, not oriented in situation). Psych: hard to assess due to aphasia Results Labs 12/06/24 05:05 12/06/24 05:05 Labs: Short CBC 12/05/24 Range/Units 05:05 WBC 12.0 H (3.6-11.0) Thou/mm3 Hgb 11.7 L (12.0-16.0) g/dL Hct 35.0 L (36.0-46.0) % Plt Count 335 D (140-440) Thou/mm3 BMP 12/05/24 05:05 Sodium 140 Potassium 4.5 D Chloride 105 Carbon Dioxide 27.6 BUN 18 Creatinine 1.2 Glucose 104 Calcium 10.0 Liver Function 05/27/25 Range/Units 05:05 Total Bilirubin 0.8 (0.3-1.2) mg/dL AST 31 (0-34) U/L ALT 19 (10-49) U/L Alkaline Phosphatase 91 (46-116) U/L Albumin 3.9 (3.4-4.8) gm/dL ABG Interpretation ABG results: 12/04/24 00:19 ABG pH 7.43 ABG pCO2 43 ABG pO2 61 L ABG HCO3 28 H ABG O2 Saturation 94 ABG Base Excess 4 H Quality Measures Quality Measures stroke Suspected type of Stroke: Acute Ischemic Tenecteplase given: Reason(s) Tenecteplase not given: Use of NOAC (eliquis, xarelto, or pradaxa) not given Rehab services: PT evaluation ordered VTE Prophylaxis: mechanical Antithrombotic by day 2:: contraindicated (describe) (susp brain malignancy) Statin ordered: >75 y/o moderate or high intensity dose Anticoagulation ordered for A-fib or flutter (current or hx): contraindicated Advance care planning discussed with:: other Medications Home Medications and Allergies Home Medications ?Medication ?Instructions ?Recorded ?Confirmed ?Type pravastatin 40 mg tablet 40 mg PO HS Hypercholesterolemia 10/22/09 12/04/24 History (Pravachol) ##0 MULTIVITAMIN (MULTI VITAMIN DAILY) 1 tab PO QDAY Supplements ##0 08/23/13 12/04/24 History irbesartan 300 mg tablet (Avapro) 300 mg PO QDAY Hypertension #0 tabs 08/23/13 12/04/24 History warfarin 7.5 mg tablet (Coumadin) 7.5 mg PO QDAY #0 tabs 06/17/17 12/04/24 History biotin 5,000 mcg sublingual tablet 5,000 mcg sublingual QDAY 11/15/18 12/04/24 History furosemide 40 mg tablet 40 mg PO QDAY 11/15/18 12/04/24 History hydrocodone 5 mg-acetaminophen 325 1 tab PO .prn PRN pain 11/15/18 12/04/24 History mg tablet spironolactone 25 mg tablet 25 mg PO QDAY 11/15/18 12/04/24 History hydrocodone 7.5 mg-acetaminophen 1 tab PO Q6H PRN pain 12/04/24 12/04/24 History 325 mg tablet Allergies Allergy/AdvReac Type Severity Reaction Status Date / Time No Known Allergies Allergy Unverified 12/04/24 10:21 Visit Medications Acetaminophen (Acetaminophen 325 Mg Tablet) 650 mg PO Q6H PRN PRN Reason: Fever >100.3 or pain Stop: 01/03/25 01:38 Hydrocodone Bitart/Acetaminophen (Hydrocodone/Apap 7.5/325 Tablet) 1 tab PO Q6HR PRN PRN Reason: PAIN SCALE 4-10(Mod-Sev Stop: 12/09/24 10:08 Last Admin: 12/05/24 09:41 Dose: 1 tab Atorvastatin Calcium (Atorvastatin Calcium 20 Mg Tablet) 40 mg PO HS KETAN Stop: 01/03/25 20:59 Last Admin: 12/04/24 20:05 Dose: 40 mg Ondansetron HCl (Ondansetron Inj 2 Mg/Ml Inj 2 Ml) 4 mg IVP Q6H PRN; Protocol PRN Reason: NAUSEA OR VOMITING Stop: 01/03/25 01:38 Sennosides (Senna Tablet) 1 tab PO QDAY PRN; Protocol PRN Reason: constipation Stop: 01/03/25 01:38 Discontinued Medications Acetaminophen (Acetaminophen 325 Mg Tablet) 650 mg PO Q6H PRN PRN Reason: Fever >100.3 or pain Stop: 01/03/25 01:38 Aspirin (Aspirin 325 Mg Tablet) 325 mg PO X1 ONE Stop: 12/05/24 10:36 Sodium Chloride (Ns) 1,000 mls @ 100 mls/hr IV X1 ONE Stop: 12/04/24 09:29 Last Infusion: 12/04/24 19:57 Dose: Infused Magnesium Sulfate (Magnesium Sulfate Ivpb) 2 gm in 50 mls @ 25 mls/hr IV X1 ONE Stop: 12/04/24 10:19 Last Infusion: 12/04/24 19:58 Dose: Infused Labetalol HCl (Labetalol Inj 5 Mg/Ml Vial 20 Ml) 10 mg IVP Q15M PRN PRN Reason: HYPER Last Admin: 12/04/24 05:39 Dose: 10 mg Labetalol HCl (Labetalol Inj 5 Mg/Ml Vial 20 Ml) 10 mg IVP X1 PRN PRN Reason: hypertension Stop: 01/03/25 06:38 Labetalol HCl (Labetalol Inj 5 Mg/Ml Vial 20 Ml) 10 mg IVP X1 ONE Stop: 12/05/24 08:22 Last Admin: 12/05/24 09:28 Dose: 10 mg Morphine Sulfate (Morphine Sulf Inj 10 Mg/Ml Vial) 1 mg IVP X1 ONE Stop: 12/04/24 16:20 Last Admin: 12/04/24 16:25 Dose: 1 mg Ondansetron HCl (Ondansetron Inj 2 Mg/Ml Inj 2 Ml) 4 mg IVP Q4HR PRN PRN Reason: NAUSEA OR VOMITING Stop: 01/02/25 23:28 Potassium Chloride (Potassium Chloride 20 Meq Tabcr) 40 meq PO X1 ONE Stop: 12/04/24 15:48 Last Admin: 12/04/24 16:26 Dose: 40 meq Assessment & Plan Plan The patient is a 89-year-old female with a previous medical history of hypertension, urogenital cancer status post left kidney, bladder resection, CAD, A-fib on warfarin, status post pacemaker placement who was brought to the ED due to confusion and speech impairment that started approximately on Wednesday last week. #Subacute stroke #Left frontal lobe edema #Mild to moderate motor aphasia #Confusion Patient is AOx3 on a baseline, according to the family. Symptoms started around Wednesday last week. CT head showed large area of edema in the left frontal lobe. INR was found to be subtherapeutic. Ddx: subacute stroke vs malignancy (hx of urogenital cancer) Plan: ? MRI brain w/wo contrast pending, pacemaker is MRI compatible ? Speech therapy ? Physical therapy ? Echo showed EF% 40-45% ? Neurochecks every 4 hours ? Head of bed elevation 30 degrees ? DVT prophylaxis ? BP control ? Atorvastatin 40 mg qday #Chronic A-fib with pacemaker #Subtherapeutic INR #Hx HTN #Hx HLD #Hx of osteoarthritis - management per primary team Plan of care discussed with attending Dr. Molina. Virginie Sanabria MD, PGY 1. Attending Provider Attestation/Addendum I personally have seen and examined the patient and I agreed with the resident's findings, assessment and plan of care. Will follow-up with MRI brain with and without contrast to rule out malignancy and to confirm acute stroke. If there is no hemorrhagic transformation, will restart anticoagulation and keep her therapeutic.
--- NOTE | 2024-12-05 11:30 | XR_ITS ---
Examination: CT brain head without contrast. 2-D sagittal coronal reconstructions Date and time of exam:December 05, 2024 1510 hours Comparison October 03, 2024 CTDI: vol (mGy):64.6 DLP: (mGycm):1266 INDICATIONS: Stroke alert December 03, 2024, large area of edema in the left frontal lobe Technique: Multiple CT axial sections of the brain have been obtained, 5 mm slice thickness. Contrast has not been administered. 2-D sagittal, coronal reconstructions have been obtained Low dose protocols were performed. One or more of the following dose reduction techniques were used; automated exposure control, adjustment of the mA and/or KV according to patient size, use of iterative reconstruction technique. Findings: No significant ventricular enlargement. 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 Basal cisterns are not remarkable. Fourth ventricle is midline. Cranial vault intact. Impression: No interval acute hemorrhage
[2024-12-05] MEDS: Aspirin 325 MG TABLET PO (11:41)
--- NOTE | 2024-12-05 13:12 | PD.IMPROG ---
Documentation for date of: 12/05/24 Subjective Subjective Interval history: Patient's pacemaker was checked with Antonella Larry It is an MRI compatible pacemaker Exam Vital Signs Temp Pulse Resp BP Pulse Ox O2 Del Method O2 Flow Rate 98.9 F 70 20 196/91 H 95 Nasal Cannula 1 12/05/24 08:00 12/05/24 09:28 12/05/24 08:00 12/05/24 09:28 12/05/24 08:00 12/05/24 08:00 12/05/24 08:00 Routine HEENT Exam Head: Present normocephalic and atraumatic Eye: Present EOMI and PERRL ENT: Present mucous membranes moist Routine Neck Exam Neck: Present supple and trachea midline Routine Respiratory Exam Respiratory: Present chest non-tender, lungs clear, normal breath sounds and no resp distress Routine Cardiovascular Exam Cardiovascular: Present RRR Routine Abdominal Exam Abdominal: Present soft and normoactive bowel sounds Routine Extremities Exam Extremities: Present full ROM Routine Skin Exam Skin: Present intact, dry and warm Routine Neurological Exam Neurological: Present alert, oriented X3 and CN II-XII intact Routine Psychiatric Exam Psychiatric: Present normal affect and normal thought process Objective Labs 12/05/24 05:05 12/05/24 05:05 Labs: Laboratory Results - last 24 hr 12/05/24 05:05 WBC 12.0 H RBC 3.76 L Hgb 11.7 L Hct 35.0 L MCV 93 MCH 31.1 MCHC 33.4 RDW Std Deviation 43.9 Plt Count 335 D Neut % (Auto) 70 Lymph % (Auto) 17 [place] % (Auto) 8 Eos % (Auto) 4 Baso % (Auto) 1 Neut # (Auto) 8.4 H Lymph # (Auto) 2.1 [place] # (Auto) 1.0 H Eos # (Auto) 0.5 Baso # (Auto) 0.1 Immature Gran # (Auto) 0.06 H Absolute Nucleated RBC 0.00 Immature Gran % 1 H Nucleated RBC % 0 PT 12.1 INR 1.1 Sodium 140 Potassium 4.5 D Chloride 105 Carbon Dioxide 27.6 Anion Gap 7 BUN 18 Creatinine 1.2 Estim Creat Clear Calc Not Performed. eGFR 44 L BUN/Creatinine Ratio [address] Glu mg/dL 111 Hemoglobin A1c 5.5 Calculated Osmolality 281 Calcium 10.0 Corrected Calcium 10.1 Phosphorus 2.6 Magnesium 2.0 Total Bilirubin 0.8 AST 31 ALT 19 Alkaline Phosphatase 91 Total Protein 7.1 Albumin 3.9 Globulin 3.2 Albumin/Globulin Ratio 1.2 ABG Interpretation ABG results: 12/04/24 00:19 ABG pH 7.43 ABG pCO2 43 ABG pO2 61 L ABG HCO3 28 H ABG O2 Saturation 94 ABG Base Excess 4 H Assessment & Plan A&P Narrative continue current meds MRI compatible pacemaker Time Spent With Patient Time: Total time spent is greater than 50% in coordination of care (as documented) at patient's floor/unit and/or counseling patient:
[2024-12-05] MEDS: hydrALAZINE INJ 20 MG/ML VIAL 10 MG IVP (17:40)
[2024-12-05] MEDS: ATORVASTATIN CALCIUM 20 MG TABLET 40 MG PO (20:45)
[2024-12-05] MEDS: cloNIDine HCL (Patch) 0.1 MG/24 HR TDSY TOP (22:01)
[2024-12-06] VITALS (17 sets, daily range): BP systolic 141–219; BP diastolic 65–105; PULSE 70–93; RESP 18–31; TEMP 36.7–37.3; O2SAT 95–97; BMI 39.2
[2024-12-06] MEDS: hydrALAZINE INJ 20 MG/ML VIAL 10 MG IVP (00:03)
[2024-12-06] MEDS: SPIRONOLACTONE 25 MG TABLET PO (04:29)
[2024-12-06] MEDS: LOSARTAN POTASSIUM 25 MG TABLET 100 MG PO (04:50)
[2024-12-06 06:14] LABS: Basophils # (Auto) 0.1 Thou/mm3 (0.0-0.2); Basophils % (Auto) 0 % (0-2.5); Eosinophils # (Auto) 0.4 Thou/mm3 (0.0-0.5); Eosinophils % (Auto) 3 % (0-10); Hemoglobin 12.5 g/dL (12.0-16.0); Immature Granulocytes % (Auto) 0 % (0-0); Immature Granulocytes Auto 0.06 Thou/mm3 (0.00-0.00); Lymphocytes # (Auto) 1.7 Thou/mm3 (1.0-4.8); Lymphocytes % (Auto) 12 % (10-50); Mean Corpuscular HGB Conc 32.9 g/dl (31.0-37.0); Mean Corpuscular Hemoglobin 30.5 pg (25.0-35.0); Mean Corpuscular Volume 93 fL (80-100); Monocytes % (Auto) 7 % (0-12); Neutrophils # (Auto) 10.4 Thou/mm3 (1.8-7.7); Neutrophils % (Auto) 77 % (37-80); Nucleated Red Blood Cell % 0 /100 WBC (0); Platelet Count 344 Thou/mm3 (140-440); RDW Standard Deviation 42.8 fL (36.4-46.3); White Blood Count 13.5 Thou/mm3 (3.6-11.0)
[2024-12-06 06:45] LABS: Alanine Aminotransferase 11 U/L (10-49); Albumin, Serum 3.9 gm/dL (3.4-4.8); Albumin/Globulin Ratio 1.3 (1.2-2.2); Alkaline Phosphatase 89 U/L (46-116); Anion Gap 9 (7-16); Aspartate Amino Transferase 24 U/L (0-34); BUN/Creatinine Ratio 17 Ratio (12-20); Bilirubin,Total 0.9 mg/dL (0.3-1.2); Blood Urea Nitrogen 17 mg/dL (9-23); Calcium (Corrected) 9.1 mg/dL (8.5-10.1); Carbon Dioxide 26.9 mMol/L (20.0-31.0); Chloride 102 mMol/L (98-107); Globulin 2.9 gm/dL (2.3-3.5); Glucose 123 mg/dL (74-106); Magnesium 1.6 mg/dL (1.6-2.6); Osmolality,Calculated 278 (275-295); Phosphorous 2.5 mg/dL (2.4-5.1); Potassium 4.2 mMol/L (3.4-5.1); Sodium 138 mMol/L (136-145); Total Protein 6.8 gm/dL (5.7-8.2); eGFR 54 See Note
[2024-12-06] MEDS: LABETALOL INJ 5 MG/ML VIAL 20 ML 10 MG IVP (08:05)
[2024-12-06] MEDS: NIFEdipine 10 MG CAPSULE 20 MG PO (08:07)
[2024-12-06] MEDS: cefTRIAXone/D5w 1gm IV premix 1 GM/50 ML BAG IV (08:07)
[2024-12-06] MEDS: ASPIRIN EC 81 MG TABEC PO (08:08)
[2024-12-06] MEDS: Magnesium Sulfate 2 GM Ivpb 2 GM/50 ML BAG IV (08:10)
--- NOTE | 2024-12-06 09:49 | PC.SS ---
Update: MRI is pending. Patient receiving IV antibiotics.
--- NOTE | 2024-12-06 09:54 | ESPR_ITS ---
<Statement entered by Valerie Myers MD - 12/06/24 22:11> Patient was seen and examined at bedside. I agree on the assessment and plan on this note. - Patient's plan and care discussed with my attending, Dr. Bina yMers MD Internal Medicine PGY-2 Documentation for date of: 12/06/24 Subjective Subjective Interval history: Pt examined at bedside today. No acute overnight events. Pt reports she is doing well. She says she gets weekly INR checks. She denies having any CP, SOB, headache. She is wondering when she is going to get her MRI today. No other complaints at this time. Exam Vital Signs Temp Pulse Resp BP Pulse Ox O2 Del Method O2 Flow Rate 99.2 F 70 31 H 219/105 H 96 Nasal Cannula 2 12/06/24 08:00 12/06/24 08:07 12/06/24 08:00 12/06/24 08:07 12/06/24 08:00 12/06/24 08:00 12/06/24 08:00 Narrative Exam General: AAOx3, NAD, obese female, pleasant HEENT: Moist mucous membranes, conjunctiva clear, EOMI, PERRLA, Cardiovascular: S1, S2, radial pulses +2 bilat, RRR Pulmonary: CTAB bilat no cough, no wheezing GI: No tenderness to light or deep palpitation, no guarding, rigidity, rebound tenderness or distension Extremities: No presence of trace or pitting edema in lower extremities bilaterally, dorsalis pedis pulses +2 bilaterally Neuro: AAOx3, no expressive or global aphasia at this time, pt is currently getting ultrasound done at this time limited motor exam, slight R sided facial droop Psych: Able to cooperate Objective Labs 12/07/24 04:48 12/07/24 04:48 Labs: Laboratory Results - last 24 hr 12/06/24 05:05 WBC 13.5 H RBC 4.10 Hgb 12.5 Hct 38.0 MCV 93 MCH 30.5 MCHC 32.9 RDW Std Deviation 42.8 Plt Count 344 Neut % (Auto) 77 Lymph % (Auto) 12 [place] % (Auto) 7 Eos % (Auto) 3 Baso % (Auto) 0 Neut # (Auto) 10.4 H Lymph # (Auto) 1.7 [place] # (Auto) 1.0 H Eos # (Auto) 0.4 Baso # (Auto) 0.1 Immature Gran # (Auto) 0.06 H Absolute Nucleated RBC 0.00 Immature Gran % 0 Nucleated RBC % 0 Sodium 138 Potassium 4.2 Chloride 102 Carbon Dioxide 26.9 Anion Gap 9 BUN 17 Creatinine 1.0 Estim Creat Clear Calc Not Performed. eGFR 54 L BUN/Creatinine Ratio 17 Glucose 123 H Calculated Osmolality 278 Calcium 9.0 Corrected Calcium 9.1 Phosphorus 2.5 Magnesium 1.6 Total Bilirubin 0.9 AST 24 ALT 11 Alkaline Phosphatase 89 Total Protein 6.8 Albumin 3.9 Globulin 2.9 Albumin/Globulin Ratio 1.3 ABG Interpretation ABG results: 12/04/24 00:19 ABG pH 7.43 ABG pCO2 43 ABG pO2 61 L ABG HCO3 28 H ABG O2 Saturation 94 ABG Base Excess 4 H Quality Measures Quality Measures stroke Suspected type of Stroke: Acute Ischemic Tenecteplase given: Reason(s) Tenecteplase not given: Use of NOAC (eliquis, xarelto, or pradaxa) not given Rehab services: PT evaluation ordered and Speech Language Pathology eval ordered VTE Prophylaxis: pharmaceutical Antithrombotic by day 2:: not indicated (describe) Statin ordered: >75 y/o moderate or high intensity dose Anticoagulation ordered for A-fib or flutter (current or hx): ordered Advance care planning discussed with:: patient Assessment & Plan Assessment Current Active Medications: Generic Name Dose Route Start Last Admin Trade Name Freq PRN Reason Stop Dose Admin Acetaminophen 650 mg 12/04/24 10:11 Acetaminophen 325 Mg Tablet PO 01/03/25 01:38 Q6H PRN Fever >100.3 or pain Hydrocodone Bitart/Acetaminophen 1 tab 12/04/24 10:09 12/05/24 20:45 Hydrocodone/Apap 7.5/325 Tablet PO 12/09/24 10:08 1 tab Q6HR PRN Administration PAIN SCALE 4-10(Mod-Sev Aspirin 81 mg 12/06/24 09:00 12/06/24 08:08 Aspirin Ec 81 Mg Tabec PO 01/05/25 08:59 81 mg QDAY KETAN Administration Atorvastatin Calcium 40 mg 12/04/24 21:00 12/05/24 20:45 Atorvastatin Calcium 20 Mg Tablet PO 01/03/25 20:59 40 mg HS KETAN Administration Ceftriaxone Sodium/Dextrose 1 gm in 50 mls @ 100 mls/hr 12/06/24 09:00 12/06/24 08:07 Rocephin/D5w 1gm Iv Premix IV 12/13/24 08:59 100 mls/hr QDAY KETAN Administration Losartan Potassium 100 mg 12/06/24 04:45 12/06/24 04:50 Losartan Potassium 25 Mg Tablet PO 01/05/25 04:44 100 mg QDAY KETAN Administration Nifedipine 20 mg 12/06/24 07:45 12/06/24 08:07 Nifedipine 10 Mg Capsule PO 01/05/25 07:44 20 mg TID KETAN Administration Ondansetron HCl 4 mg 12/04/24 01:39 Ondansetron Inj 2 Mg/Ml Inj 2 Ml IVP 01/03/25 01:38 Q6H PRN NAUSEA OR VOMITING Protocol Sennosides 1 tab 12/04/24 01:39 Senna Tablet PO 01/03/25 01:38 QDAY PRN constipation Protocol Spironolactone 25 mg 12/06/24 04:10 12/06/24 04:29 Spironolactone 25 Mg Tablet PO 01/05/25 04:09 25 mg QDAY KETAN Administration Plan Assessment Kathy Laird is 89 yr female with PMH of hypertension, bladder cancer s/p resection, left kidney cancer status post resection, CAD, A-fib on warfarin, pacemaker placement presenting to ED brought in by son after some confusion and aphasia. History was obtained from son. Patient to be admitted for workup of acute CVA. #CVA rule out #Expressive aphasia Teleneurology was consulted after stroke alert initiated, NIHSS Score 2: CT head showed edema in the left frontal lobe CTA head neck shows 70% stenosis of right carotid, left carotid bifurcation shows 40% stenosis LDL 114 Echo shows no PFO at this time Pt unable to tolerate MRI today due to leg cramps Neurology is not recommending repeat MRI at this time Repeat head CT was negative Pt will either be on ASA+DOAC due to bleeding risk and patient will need DOAC for afib DAPT+DOAC would provide high risk for bleeding yaya with falls and considering her age, will not do triple agents Plan: ? Neurology consulted, appreciate recs ? ASA 81 mg ? We will hold off on Plavix due to patient going to receive Eliquis and bleeding risk ? Speech therapy ? Physical therapy recommending home health PT ? Neurochecks every 4 hours ? Head of bed elevation 30 degrees ? Bedrest ? Lipitor 40 mg at bedtime #Hypertensive urgency SBP 210 today Patient out of permissive hypertensive window It seems that patient was on eprosartan outpatient, spironolactone and Lasix 40 mg Patient has required additional IV pushes of hydralazine and labetalol while inpatient Due to patient requiring these medicines, we will reconcile medicines also concerned that patient does have HFrEF and will require GDMT therapy No evidence of endorgan damage at this time including creatinine, liver function testing and symptoms Plan: ? Losartan 50 mg by mouth daily ? Coreg 6.25 mg by mouth daily ? Resume home Lasix 40 mg every morning ? Added nifedipine 30 mg XL starting tomorrow ? Hydralazine 10 mg IV every 6 hours as needed for SBP above 180 #Asymptomatic UTI #Leukocytosis Patient was asymptomatic, however white count is elevating at 13.6, and no fevers at this time Urine culture does show resistant E. coli, will treat in the setting despite being asymptomatic for patient Patient will likely get third-generation oral cephalosporin such as cefdinir upon discharge Plan: ? Rocephin 1 g IV daily ? Trend with CBC #Hx of HFrEF, EJ ~40-45% Echo 12/04: Normal LV size and wall thickness. Estimated EF 40-45%. Global left ventricular systolic function is mildly decreased. The RV is normal in size and systolic function. RVSP, 56 mmHg. RAP 5. Mild MR. Mild MS. Moderate MAC. There is mild to moderate TR. Patient will need GDMT therapy, currently on spironolactone, will add ARB, and also beta-girma Plan: ? Losartan 50 mg by mouth starting tomorrow ? Continue spironolactone 25 m by mouth g daily ? Coreg 6.25 mg by mouth starting tonight ? Lasix 40 mg by mouth ? Hold on SGLT2 at this time due to patient having history of UTIs ? Strict GEGE's ? Fluid restriction 200 mL ? Keep magnesium potassium above 2 and 4 respectively #Chronic A-fib with pacemaker #Subtherapeutic INR [id number]: 5 HAS-BLED: 3, high risk of major bleeding Rhythm: Paced, controlled AC: On warfarin at home however there may be a component of medication noncompliance as INR is subtherapeutic Patient will transition to Eliquis at this time Unsure why patient was on warfarin, could be insurance issues, other contraindications such as mechanical valves are unknown at this time Plan: ? Cardiology consulted, appreciate recs ? Keep potassium magnesium above 4 and 2 respectively ? Telemetry ? Eliquis 5 mg twice daily #Hx HTN #Hx HLD Chronic LDL 114 Plan: ? Lipitor 40 mg HS ? As above #Hx of osteoarthritis Takes [place] 7.5 at home Plan: ? [place] 7.5 TID PRN upon med rec #Health Maintenance Disposition: Telemetry DVT prophylaxis: Eliquis GI prophylaxis: Not indicated at this time Diet: Cardiac CODE STATUS: DNR Patient seen and care discussed with my attending physician, Dr. Curran, and my senior resident, Dr. Louis Castillo, PGY-1 Attending Provider Attestation/Addendum I reviewed labs, imaging, EKG, home medications and prior available records. Face to face evaluation was performed by me. I have personally examined the patient and discussed assessment and plan with the IM team. I reviewed the resident note and agree with the plan with exceptions as below. CVA symptoms Acute encephalopathy Right carotid stenosis Atrial fibrillation with controlled ventricular rate Status post permanent pacemaker Hypertensive urgency CHF EF 40 to 45% Acute UTI Hyperlipidemia Mental status improved Carotid ultrasound showed significant right carotid stenosis at 70% Repeat CT head showed no acute interval changes or bleed Could not do the MRI as the patient was not able to lie flat in bed Discussed with start Eliquis in addition to aspirin Continue atorvastatin Started losartan, nifedipine, and spironolactone. Monitor BP Started IV Rocephin
[2024-12-06] MEDS: DOCUSATE SOD 100 MG CAPSULE PO (10:26)
[2024-12-06] MEDS: POLYETHYLENE GLYCOL 17 GM PACKET PO (10:26)
[2024-12-06] MEDS: Furosemide 40 MG TABLET PO (12:53)
--- NOTE | 2024-12-06 13:28 | ESPR_ITS ---
Documentation for date of: 12/06/24 Subjective Subjective Interval history: Patient was seen and examined by the bedside. No acute overnight events. Patient continues to have mild to moderate aphasia. She was unable to lie down in the MRI. Had a conversation with the patient, explained the reasons the MRI was ordered since there's a concern for possible malignancy. Suggested using medication to help her relax. Patient reported that she harry be unable to tolerate MRI. Repeat CT head yesterday was negative for bleeding. Will start Eliquis and aspirin 81 mg. Exam Vital Signs Temp Pulse Resp BP Pulse Ox O2 Del Method O2 Flow Rate 98.2 F 70 29 H 143/69 H 95 Nasal Cannula 2 12/06/24 12:00 12/06/24 12:53 12/06/24 12:00 12/06/24 12:53 12/06/24 12:00 12/06/24 12:00 12/06/24 12:00 Narrative Exam Gen: Well-developed and well-nourished. HEENT: NCAT, PERRLA, EOMI, MMM, anicteric conjunctivae. CVS: normal S1 and S2. RRR. No M/R/G. Resp: CTA B/L. No rhonchi, rales, crackles or wheezing. Abd: soft, non-tender, non-distended. BS+ in all 4 quadrants. MSK: Good ROM in BUE & BLE. No edema or rash. Neuro: Mild to moderate motor aphasia. CN II-XII grossly intact. Strength 5/5 in BUE & BLE. Patient reports her name, date. Inability to answer question most likely due to aphasia. Psych: hard to assess due to aphasia Objective Labs 12/07/24 04:48 12/07/24 04:48 Labs: Laboratory Results - last 24 hr 12/06/24 05:05 WBC 13.5 H RBC 4.10 Hgb 12.5 Hct 38.0 MCV 93 MCH 30.5 MCHC 32.9 RDW Std Deviation 42.8 Plt Count 344 Neut % (Auto) 77 Lymph % (Auto) 12 [place] % (Auto) 7 Eos % (Auto) 3 Baso % (Auto) 0 Neut # (Auto) 10.4 H Lymph # (Auto) 1.7 [place] # (Auto) 1.0 H Eos # (Auto) 0.4 Baso # (Auto) 0.1 Immature Gran # (Auto) 0.06 H Absolute Nucleated RBC 0.00 Immature Gran % 0 Nucleated RBC % 0 Sodium 138 Potassium 4.2 Chloride 102 Carbon Dioxide 26.9 Anion Gap 9 BUN 17 Creatinine 1.0 Estim Creat Clear Calc Not Performed. eGFR 54 L BUN/Creatinine Ratio 17 Glucose 123 H Calculated Osmolality 278 Calcium 9.0 Corrected Calcium 9.1 Phosphorus 2.5 Magnesium 1.6 Total Bilirubin 0.9 AST 24 ALT 11 Alkaline Phosphatase 89 Total Protein 6.8 Albumin 3.9 Globulin 2.9 Albumin/Globulin Ratio 1.3 ABG Interpretation ABG results: 12/04/24 00:19 ABG pH 7.43 ABG pCO2 43 ABG pO2 61 L ABG HCO3 28 H ABG O2 Saturation 94 ABG Base Excess 4 H Quality Measures Quality Measures stroke Suspected type of Stroke: Acute Ischemic Tenecteplase given: Reason(s) Tenecteplase not given: Use of NOAC (eliquis, xarelto, or pradaxa) not given Rehab services: PT evaluation ordered VTE Prophylaxis: pharmaceutical Antithrombotic by day 2:: ordered Statin ordered: >75 y/o moderate or high intensity dose Anticoagulation ordered for A-fib or flutter (current or hx): ordered Advance care planning discussed with:: other Assessment & Plan Assessment Current Active Medications: Generic Name Dose Route Start Last Admin Trade Name Freq PRN Reason Stop Dose Admin Acetaminophen 650 mg 12/04/24 10:11 Acetaminophen 325 Mg Tablet PO 01/03/25 01:38 Q6H PRN Fever >100.3 or pain Hydrocodone Bitart/Acetaminophen 1 tab 12/04/24 10:09 12/05/24 20:45 Hydrocodone/Apap 7.5/325 Tablet PO 12/09/24 10:08 1 tab Q6HR PRN Administration PAIN SCALE 4-10(Mod-Sev Aspirin 81 mg 12/06/24 09:00 12/06/24 08:08 Aspirin Ec 81 Mg Tabec PO 01/05/25 08:59 81 mg QDAY KETAN Administration Atorvastatin Calcium 40 mg 12/04/24 21:00 12/05/24 20:45 Atorvastatin Calcium 20 Mg Tablet PO 01/03/25 20:59 40 mg HS KETAN Administration Furosemide 40 mg 12/06/24 10:45 12/06/24 12:53 Furosemide 40 Mg Tablet PO 01/05/25 10:44 40 mg QDAY KETAN Administration Ceftriaxone Sodium/Dextrose 1 gm in 50 mls @ 100 mls/hr 12/06/24 09:00 12/06/24 08:07 Rocephin/D5w 1gm Iv Premix IV 12/13/24 08:59 100 mls/hr QDAY KETAN Administration Losartan Potassium 100 mg 12/06/24 04:45 12/06/24 04:50 Losartan Potassium 25 Mg Tablet PO 01/05/25 04:44 100 mg QDAY KETAN Administration Nifedipine 10 mg 12/06/24 14:00 Nifedipine 10 Mg Capsule PO 01/05/25 13:59 TID KETAN Ondansetron HCl 4 mg 12/04/24 01:39 Ondansetron Inj 2 Mg/Ml Inj 2 Ml IVP 01/03/25 01:38 Q6H PRN NAUSEA OR VOMITING Protocol Sennosides 1 tab 12/04/24 01:39 Senna Tablet PO 01/03/25 01:38 QDAY PRN constipation Protocol Spironolactone 25 mg 12/06/24 04:10 12/06/24 04:29 Spironolactone 25 Mg Tablet PO 01/05/25 04:09 25 mg QDAY KETAN Administration Plan The patient is a 89-year-old female with a previous medical history of hypertension, urogenital cancer status post left kidney, bladder resection, CAD, A-fib on warfarin, status post pacemaker placement who was brought to the ED due to confusion and speech impairment that started approximately on Wednesday last week. #Subacute stroke #Left frontal lobe edema #Mild to moderate motor aphasia #Confusion Patient is AOx3 on a baseline, according to the family. Symptoms started around Wednesday last week. CT head showed large area of edema in the left frontal lobe. INR was found to be subtherapeutic. Ddx: subacute stroke vs malignancy (hx of urogenital cancer) Plan: ? MRI brain w/wo contrast cancelled due to patient being unable to tolerate MRI - repeat head CT was negative for bleeding ? Speech therapy ? Physical therapy ? Echo showed EF% 40-45% ? Neurochecks every 4 hours ? Head of bed elevation 30 degrees ? DVT prophylaxis ? BP control ? Atorvastatin 40 mg qday - eliquis 5 mg BID - aspirin 81 mg qday #Chronic A-fib with pacemaker #Subtherapeutic INR #Hx HTN #Hx HLD #Hx of osteoarthritis - management per primary team Plan of care discussed with attending Dr. Molina. Virginie Sanabria MD, PGY 1. Attending Provider Attestation/Addendum I personally have seen and examined the patient and I agree with resident's findings, assessment and plan of care. Patient's language function has improved significantly from admission. As the repeat CT head is negative for bleed and cannot get the MRI brain, will start ASA 81 mg with Eliquis with close monitoring for any bleeding.
[2024-12-06] MEDS: NIFEdipine 10 MG CAPSULE PO (14:45)
[2024-12-06] MEDS: APIXABAN 2.5 MG TABLET 5 MG PO ×2 (14:45→20:21)
--- NOTE | 2024-12-06 15:04 | PC.SS ---
Rounding Note: Neurology consulting. No repeat of MRI. Elevated blood pressure. Plan is to d/c home tomorrow with home health.
[2024-12-06] MEDS: ONDANSETRON INJ 2 MG/ML INJ 2 ML 4 MG IVP (18:13)
[2024-12-06] MEDS: carVEDILOL 3.125 MG TABLET 6.25 MG PO (18:31)
[2024-12-06] MEDS: HYDROcodone/APAP 7.5/325 TABLET 1 TAB PO (18:33)
--- NOTE | 2024-12-06 19:54 | PC.NURSE ---
at 0910, pt to MRI, unable to complete MRI because patient unable to lay flat despite multiple attempts to place cushions and reposition, MD Leiva made aware, per MD MRI cancelled, not further orders at this time
[2024-12-06] MEDS: ATORVASTATIN CALCIUM 20 MG TABLET 40 MG PO (20:21)
[2024-12-07] VITALS (11 sets, daily range): BP systolic 118–151; BP diastolic 63–83; PULSE 46–71; RESP 18–23; TEMP 36.1–36.8; O2SAT 94–97; BMI 39.2
[2024-12-07 05:22] LABS: Basophils # (Auto) 0.1 Thou/mm3 (0.0-0.2); Basophils % (Auto) 0 % (0-2.5); Eosinophils # (Auto) 0.4 Thou/mm3 (0.0-0.5); Eosinophils % (Auto) 4 % (0-10); Immature Granulocytes % (Auto) 1 % (0-0); Immature Granulocytes Auto 0.06 Thou/mm3 (0.00-0.00); Lymphocytes # (Auto) 2.2 Thou/mm3 (1.0-4.8); Lymphocytes % (Auto) 18 % (10-50); Mean Corpuscular HGB Conc 33.3 g/dl (31.0-37.0); Mean Corpuscular Hemoglobin 30.5 pg (25.0-35.0); Mean Corpuscular Volume 91 fL (80-100); Monocytes # (Auto) 1.1 Thou/mm3 (0.0-0.8); Monocytes % (Auto) 9 % (0-12); Neutrophils % (Auto) 68 % (37-80); Nucleated Red Blood Cell % 0 /100 WBC (0); Platelet Count 344 Thou/mm3 (140-440); RDW Standard Deviation 42.2 fL (36.4-46.3); Red Blood Count 3.94 Miln/mm3 (4.00-5.20); White Blood Count 11.8 Thou/mm3 (3.6-11.0)
[2024-12-07 05:54] LABS: Alanine Aminotransferase 9 U/L (10-49); Albumin, Serum 3.7 gm/dL (3.4-4.8); Albumin/Globulin Ratio 1.3 (1.2-2.2); Alkaline Phosphatase 82 U/L (46-116); Anion Gap 6 (7-16); Aspartate Amino Transferase 19 U/L (0-34); BUN/Creatinine Ratio 19 Ratio (12-20); Bilirubin,Total 0.7 mg/dL (0.3-1.2); Blood Urea Nitrogen 23 mg/dL (9-23); Calcium (Corrected) 9.2 mg/dL (8.5-10.1); Carbon Dioxide 29.8 mMol/L (20.0-31.0); Chloride 103 mMol/L (98-107); Creatinine (Component) 1.2 mg/dL (0.6-1.3); Estimated Creatinine Clearance 38.4 mL/min (>60); Globulin 2.8 gm/dL (2.3-3.5); Glucose 108 mg/dL (74-106); Magnesium 1.9 mg/dL (1.6-2.6); Osmolality,Calculated 282 (275-295); Phosphorous 3.8 mg/dL (2.4-5.1); Potassium 4.6 mMol/L (3.4-5.1); Sodium 139 mMol/L (136-145); Total Protein 6.5 gm/dL (5.7-8.2); eGFR 44 See Note
[2024-12-07] MEDS: LOSARTAN POTASSIUM 25 MG TABLET 50 MG PO (08:45)
[2024-12-07] MEDS: cefTRIAXone/D5w 1gm IV premix 1 GM/50 ML BAG IV (08:45)
[2024-12-07] MEDS: Furosemide 40 MG TABLET PO (08:46)
[2024-12-07] MEDS: APIXABAN 2.5 MG TABLET 5 MG PO ×2 (08:46→20:35)
[2024-12-07] MEDS: ASPIRIN EC 81 MG TABEC PO (08:46)
[2024-12-07] MEDS: NIFEdipine XL 30 MG TABCR PO (08:46)
[2024-12-07] MEDS: SPIRONOLACTONE 25 MG TABLET PO (08:46)
--- NOTE | 2024-12-07 09:49 | PC.SS ---
[employer] informed bedside nurse of need to conduct room air evaluation to determine if patient will require home oxygen upon discharge.
--- NOTE | 2024-12-07 09:51 | PC.NURSE ---
Patient SPO2 on room air at rest is 85%. Patient requires 2L of oxygen via Nasal Cannula to maintain SPO2 above 92%.
--- NOTE | 2024-12-07 10:09 | PC.SS ---
Oxygen Pt is discharged in a chronic stable state and has been treated optimally and has other respiratory needs. Oxygen has been ordered due to atrial fibrillation.?
--- NOTE | 2024-12-07 10:41 | PC.SS ---
Update: Plan is to d/c patient home today.
[2024-12-07] MEDS: SENNA TABLET 1 TAB PO (11:24)
--- NOTE | 2024-12-07 11:49 | PC.SS ---
FINISH MACHINE [employer]ENDER informed by bedside nurse that patient's son will bring patient's oxygen for transport home.
--- NOTE | 2024-12-07 11:50 | PD.RESDS ---
Planned Discharge Date 12/07/24 DS: Providers Provider Date of admission: 12/04/24 01:39 Primary care physician: Serenity Ferrari MD Admitting Provider: Del Horowitz MD Attending Provider on Admission: Sarbjit Curran MD Consults: 12/03/24 23:30 Consult to Neurology / Tele-Neurology Routine Comment: Consulting Provider: [facility] 12/04/24 01:43 Referral Physical Therapy Routine Comment: Physician Instructions: 12/04/24 02:11 Consult to Neurology / Tele-Neurology Routine Comment: CVA workup Consulting Provider: Fritz Molina 12/04/24 08:20 Referral Speech Therapy Routine Comment: 12/04/24 11:04 Consult to Cardiology Routine Comment: Consulting Provider: Courtney Reno Attending Provider on DC: Valerie Myers MD Discharging Provider: Valerie Myers MD Hospital Course Hospital Course Hospital course: Patient was seen and examined by the bedside. No acute overnight events. Patient continues to have mild to moderate aphasia. She was unable to lie down in the MRI. Had a conversation with the patient, explained the reasons the MRI was ordered since there's a concern for possible malignancy. Suggested using medication to help her relax. Patient reported that she harry be unable to tolerate MRI. Repeat CT head yesterday was negative for bleeding. Will start Eliquis and aspirin 81 mg. Time Spent with Patient Time attestation: Total time spent providing and/or coordinating discharge services: Quality: Stroke Pt Provided Written Stroke Discharge Instructions: No Home Health Home Health Referral Orders: 12/06/24 10:01 Home Health Referral Routine Reason For Exam: Home PT Home-Bound The patient must either because of illness or injury, need the aid of supportive devices such as crutches, canes, wheelchairs, and walkers; the use of special transportation; or the assistance of another person in order to leave their place of residence; OR have a condition such that leaving his or her home is medically contraindicated. In addition, the patient also meets the following criteria: patient is normally unable to leave the home and leaving home requires considerable taxing effort. Addendum to Home Health Certification Practitioner's Certification: I certify that the patient has been under my care in the hospital and the care of attending physician (see below). We had a fgrp-ug-qpsj encounter on (see date below). My clinical findings indicate that the patient is home bound per the above criteria and the Home Health Services noted in these orders are medically necessary. The primary reason for the hzbr-zy-nyae encounter is related to the fact that the patient requires home health services. Date Certifying Hisg-jb-Vrea Physician Encounter: 12/04/24 Physician's Name who will Assume Oversight for Services: Serenity Ferrari Physician's Phone No.who will Assume Oversight for Service: VICE PRESIDENT PAYER - Community Resources: Yes PT to Evaluate: Yes PT to evaluate and provide a treatmnet plan to increase patient's mobility and strength. Wound Care: No IV Therapy: No RN Safety Evaluation: Yes RN to evaluate and create a plan of care that will produce positive outcomes. Palliative Treatment: No Palliative treatment and evaluate the need for hospice. Home Health Aide - Personal Care: Yes Home Health Aide to assist with any ADL's. 12/07/24 10:15 Home Health Referral Routine Reason For Exam: Home PT Home-Bound The patient must either because of illness or injury, need the aid of supportive devices such as crutches, canes, wheelchairs, and walkers; the use of special transportation; or the assistance of another person in order to leave their place of residence; OR have a condition such that leaving his or her home is medically contraindicated. In addition, the patient also meets the following criteria: patient is normally unable to leave the home and leaving home requires considerable taxing effort. Addendum to Home Health Certification Practitioner's Certification: I certify that the patient has been under my care in the hospital and the care of attending physician (see below). We had a ayqq-pw-vzao encounter on (see date below). My clinical findings indicate that the patient is home bound per the above criteria and the Home Health Services noted in these orders are medically necessary. The primary reason for the cnxu-bq-imxd encounter is related to the fact that the patient requires home health services. Date Certifying Bdcg-jz-Xptc Physician Encounter: 05/26/25 Physician's Name who will Assume Oversight for Services: Serenity Ferrari Physician's Phone No.who will Assume Oversight for Service: VICE PRESIDENT PAYER - Community Resources: Yes PT to Evaluate: Yes PT to evaluate and provide a treatmnet plan to increase patient's mobility and strength. Wound Care: No IV Therapy: No RN Safety Evaluation: Yes RN to evaluate and create a plan of care that will produce positive outcomes. Palliative Treatment: No Palliative treatment and evaluate the need for hospice. Home Health Aide - Personal Care: Yes Home Health Aide to assist with any ADL's. Exam Vital Signs Temp Pulse Resp BP Pulse Ox O2 Del Method O2 Flow Rate 96.9 F 70 20 139/74 H 97 Nasal Cannula 1 12/07/24 08:00 12/07/24 08:46 12/07/24 08:00 12/07/24 08:46 12/07/24 08:00 12/07/24 08:00 12/07/24 08:00 Discharge Plan Plan Patient Disposition: Home w/HOME HEALTH Patient condition on transfer: Benefits outweigh risks Care Plan Goals: Discharge Instructions: Stop Warfarin as we started you on another blood thinner Eliquis, and Aspirin Follow up with your PCP within one week from discharge Follow up with the neurologist Dr Phelps within 1-2 weeks from discharge Follow-up with the social services designee within 1 week from discharge regarding your heart failure and your atrial fibrillation Monitor your blood pressure twice a day and keep it in a record to show your primary care provider in the next visit Use meds as prescribed In case of worsening of your symptoms or recurrent, please return to the ED as soon as possible Continue physical rehab as recommended Follow the speech therapist recommendations regarding feeds Prescriptions/Referrals Prescriptions/Med Rec: New apixaban 5 mg tablet 5 mg PO BID 14 Days Qty: 28 0RF atorvastatin 40 mg tablet 40 mg PO QDAY 14 Days Qty: 14 0RF aspirin 81 mg tablet 81 mg PO QDAY 14 Days Qty: 14 0RF nifedipine 30 mg Tablet Extended Release 24hr 30 mg PO QDAY 7 Days Qty: 7 0RF amoxicillin-pot clavulanate 875-125 mg tablet 1 tab PO BID 4 Days Qty: 8 0RF carvedilol 6.25 mg tablet 6.25 mg PO BID 7 Days Qty: 14 0RF Rx Instructions: must administer with a meal/food Continued furosemide 40 mg tablet 40 mg PO QDAY spironolactone 25 mg tablet 25 mg PO QDAY irbesartan [Avapro] 300 MG tablet 300 mg PO QDAY Qty: 0 MULTIVITAMIN (MULTI VITAMIN DAILY) 1 EACH tablet 1 tab PO QDAY Qty: 0 hydrocodone-acetaminophen 7.5-325 mg tablet 1 tab PO Q6H PRN (Reason: pain) Patient Comments: TAKE 1 TABLET BY MOUTH EVERY 6 HOURS NEEDED FOR PAIN Discontinued biotin 5,000 mcg tablet, sublingual 5,000 mcg SUBLINGUAL QDAY hydrocodone-acetaminophen 5-325 mg tablet 1 tab PO .prn PRN (Reason: pain) pravastatin [Pravachol] 40 MG tablet 40 mg PO HS Qty: 0 warfarin [Coumadin] 7.5 MG tablet 7.5 mg PO QDAY Qty: 0 Referrals: Serenity Ferrari MD [Primary Care Provider] - Patient/Caregiver Discharge Instructions Discharge Activity: as per physical therapy Education Materials: AFL/Afib, Anatomy of the Brain, Discharge Instructions for Stroke Print Language: Kyrgyz Stand Alone Forms: Carol Award Info., Patient Portal Info Letter Discharge Order Discharge Orders: Discharge (Routine); Ordered 12/07/24 Ordered By: Valerie Myers
--- NOTE | 2024-12-07 13:11 | ESDS_ITS ---
Planned Discharge Date 12/07/24 DS: Providers Provider Date of admission: 12/04/24 01:39 Primary care physician: Serenity Ferrari MD Admitting Provider: Del Horowitz MD Attending Provider on Admission: Sarbjit Curran MD Consults: 12/03/24 23:30 Consult to Neurology / Tele-Neurology Routine Comment: Consulting Provider: [facility] 12/04/24 01:43 Referral Physical Therapy Routine Comment: Physician Instructions: 12/04/24 02:11 Consult to Neurology / Tele-Neurology Routine Comment: CVA workup Consulting Provider: Fritz Molina 12/04/24 08:20 Referral Speech Therapy Routine Comment: 12/04/24 11:04 Consult to Cardiology Routine Comment: Consulting Provider: Courtney Reno Attending Provider on DC: Sarbjit Curran MD Discharging Provider: Sarbjit Curran MD DS: Diagnosis Problem List Completed Was Problem List Reviewed/Reconciled?: Yes Hospital Course Hospital Course Hospital course: Kathy Laird is 89 y/o female with PMHx of hypertension, bladder cancer s/p resection, left kidney cancer status post resection, CAD, A-fib on warfarin, pacemaker placement who was admitted for acute CVA. Pt arrived to the ED with a BP 182/80, HR 69, RR 16, afebrile saturating adequately on room air. Mild leukocytosis of 12 on CBC. Hemoglobin stable. Electrolytes within normal limits. BUN 26, creatinine 1.3, glucose 98, TSH 2.0. UA pending. Teleneurology was consulted after stroke alert initiated. CT head showed edema in the left frontal lobe, CTA head neck negative for LVO. She was given IV labetalol 10 mg and NS in ED. She was not a candidate for thrombolytics and LWK unknown. NIHSS score from my evaluation at bedside was 2. Medicine was consulted and patient admitted to the floors. On the floors, patient was going to get MRI of the brain for stroke protocol. Patient has history of pacemaker and it was confirmed with cardiology, Dr. Reno that her pacemaker was compatible with MRI. Patient was unable to get MRI due due to her not being able to lie flat. Neurology was consulted, Dr. Molina, who had said patient did not need repeat MRI as CT findings showed some edema as well. Repeat CT was ordered to initiate anticoagulation and it showed left frontal edema with mass effect. Patient was then resumed on anticoagulation. Due to patient's bleeding risk, DAPT was not started as patient needed anticoagulation for atrial fibrillation as well. Patient was transition from warfarin to Eliquis as patient had subtherapeutic INR and was put on DOAC. Patient was then given aspirin and Eliquis for stroke and atrial fibrillation. Patient is at high bleeding risk and that is why patient was not given Eliquis as well. Patient had echocardiogram done which showed systolic heart failure with reduced ejection fraction 40 to 45%, and was recommended to follow-up with her supervisor feed house, Dr. Reno. Patient also had hypertensive emergency while in the ED requiring multiple pushes of IV blood pressure medicines including hydralazine and labetalol. GDMT therapy was optimized for patient and patient was discharged with GDMT blood pressure medicines and had some discontinued including hyd ralazine. Patient was also treated for UTI, despite it being asymptomatic and her culture grew E. coli. Patient was then discharged to home with home health (per PT recommendations) with the following instructions. Discharge Instructions: Stop Warfarin as we started you on another blood thinner Eliquis, and Aspirin Follow up with your PCP within one week from discharge Follow up with the neurologist Dr Phelps within 1-2 weeks from discharge Follow-up with the supervisor feed house within 1 week from discharge regarding your heart failure and your atrial fibrillation Monitor your blood pressure twice a day and keep it in a record to show your primary care provider in the next visit Use meds as prescribed Finish up your antibiotic course of Augmentin for UTI In case of worsening of your symptoms or recurrent, please return to the ED as soon as possible Continue physical rehab as recommended Follow the speech therapist recommendations regarding feeds Problem List: #Acute CVA #Expressive aphasia #Hypertensive emergency #Asymptomatic UTI #Leukocytosis #Hx of HFrEF, EJ ~40-45% #Chronic A-fib with pacemaker #Subtherapeutic INR #Hx HTN #Hx HLD #Hx of osteoarthritis Discharge summary was reviewed with my attending Dr. Curran and my senior resident Dr. Louis Castillo, PGY-1 Time Spent with Patient Time attestation: Total time spent providing and/or coordinating discharge services: Time spent: Greater than 30 minutes Quality: Stroke Pt Provided Written Stroke Discharge Instructions: No Home Health Home Health Referral Orders: 12/06/24 10:01 Home Health Referral Routine Reason For Exam: Home PT Home-Bound The patient must either because of illness or injury, need the aid of supportive devices such as crutches, canes, wheelchairs, and walkers; the use of special transportation; or the assistance of another person in order to leave their place of residence; OR have a condition such that leaving his or her home is medically contraindicated. In addition, the patient also meets the following criteria: patient is normally unable to leave the home and leaving home requires considerable taxing effort. Addendum to Home Health Certification Practitioner's Certification: I certify that the patient has been under my care in the hospital and the care of attending physician (see below). We had a cflg-yw-ynbn encounter on (see date below). My clinical findings indicate that the patient is home bound per the above criteria and the Home Health Services noted in these orders are medically necessary. The primary reason for the aavk-zq-ibdw encounter is related to the fact that the patient requires home health services. Date Certifying Lqyz-nh-Aims Physician Encounter: 12/04/24 Physician's Name who will Assume Oversight for Services: Serenity Ferrari Physician's Phone No.who will Assume Oversight for Service: TRUCK MECHANIC APPRENTICE - Community Resources: Yes PT to Evaluate: Yes PT to evaluate and provide a treatmnet plan to increase patient's mobility and strength. Wound Care: No IV Therapy: No RN Safety Evaluation: Yes RN to evaluate and create a plan of care that will produce positive outcomes. Palliative Treatment: No Palliative treatment and evaluate the need for hospice. Home Health Aide - Personal Care: Yes Home Health Aide to assist with any ADL's. 12/07/24 10:15 Home Health Referral Routine Reason For Exam: Home PT Home-Bound The patient must either because of illness or injury, need the aid of supportive devices such as crutches, canes, wheelchairs, and walkers; the use of special transportation; or the assistance of another person in order to leave their place of residence; OR have a condition such that leaving his or her home is medically contraindicated. In addition, the patient also meets the following criteria: patient is normally unable to leave the home and leaving home requires considerable taxing effort. Addendum to Home Health Certification Practitioner's Certification: I certify that the patient has been under my care in the hospital and the care of attending physician (see below). We had a oxof-vq-cdtc encounter on (see date below). My clinical findings indicate that the patient is home bound per the above criteria and the Home Health Services noted in these orders are medically necessary. The primary reason for the khbp-ag-gfjk encounter is related to the fact that the patient requires home health services. Date Certifying Ljnn-yd-Zrsg Physician Encounter: 12/04/24 Physician's Name who will Assume Oversight for Services: Serenity Ferrari Physician's Phone No.who will Assume Oversight for Service: TRUCK MECHANIC APPRENTICE - Community Resources: Yes PT to Evaluate: Yes PT to evaluate and provide a treatmnet plan to increase patient's mobility and strength. Wound Care: No IV Therapy: No RN Safety Evaluation: Yes RN to evaluate and create a plan of care that will produce positive outcomes. Palliative Treatment: No Palliative treatment and evaluate the need for hospice. Home Health Aide - Personal Care: Yes Home Health Aide to assist with any ADL's. Exam Vital Signs Temp Pulse Resp BP Pulse Ox O2 Del Method O2 Flow Rate 97.8 F 70 18 140/72 H 94 L Nasal Cannula 1 12/07/24 12:12/07/24 12:12/07/24 12:12/07/24 12:12/07/24 12:12/07/24 12:12/07/24 12:00 Narrative Exam General: AAOx3, NAD, obese female, pleasant HEENT: Moist mucous membranes, conjunctiva clear, EOMI, PERRLA, Cardiovascular: S1, S2, radial pulses +2 bilat, RRR Pulmonary: CTAB bilat no cough, no wheezing GI: No tenderness to light or deep palpitation, no guarding, rigidity, rebound tenderness or distension Extremities: No presence of trace or pitting edema in lower extremities bilaterally, dorsalis pedis pulses +2 bilaterally Neuro: AAOx3, no expressive or global aphasia at this time, no motor deficits at this time Psych: Able to cooperate Discharge Plan Plan Patient Disposition: Home w/HOME HEALTH Patient condition on transfer: Benefits outweigh risks Care Plan Goals: Discharge Instructions: Stop Warfarin as we started you on another blood thinner Eliquis, and Aspirin Follow up with your PCP within one week from discharge Follow up with the neurologist Dr Phelps within 1-2 weeks from discharge Follow-up with the supervisor feed house within 1 week from discharge regarding your heart failure and your atrial fibrillation Monitor your blood pressure twice a day and keep it in a record to show your primary care provider in the next visit Use meds as prescribed Finish up your antibiotic course of Augmentin for UTI In case of worsening of your symptoms or recurrent, please return to the ED as soon as possible Continue physical rehab as recommended Follow the speech therapist recommendations regarding feeds Prescriptions/Referrals Prescriptions/Med Rec: New apixaban 5 mg tablet 5 mg PO BID 14 Days Qty: 28 0RF atorvastatin 40 mg tablet 40 mg PO QDAY 14 Days Qty: 14 0RF aspirin 81 mg tablet 81 mg PO QDAY 14 Days Qty: 14 0RF nifedipine 30 mg Tablet Extended Release 24hr 30 mg PO QDAY 7 Days Qty: 7 0RF amoxicillin-pot clavulanate 875-125 mg tablet 1 tab PO BID 4 Days Qty: 8 0RF carvedilol 6.25 mg tablet 6.25 mg PO BID 7 Days Qty: 14 0RF Rx Instructions: must administer with a meal/food Continued furosemide 40 mg tablet 40 mg PO QDAY spironolactone 25 mg tablet 25 mg PO QDAY irbesartan [Avapro] 300 MG tablet 300 mg PO QDAY Qty: 0 MULTIVITAMIN (MULTI VITAMIN DAILY) 1 EACH tablet 1 tab PO QDAY Qty: 0 hydrocodone-acetaminophen 7.5-325 mg tablet 1 tab PO Q6H PRN (Reason: pain) Patient Comments: TAKE 1 TABLET BY MOUTH EVERY 6 HOURS NEEDED FOR PAIN Discontinued biotin 5,000 mcg tablet, sublingual 5,000 mcg SUBLINGUAL QDAY hydrocodone-acetaminophen 5-325 mg tablet 1 tab PO .prn PRN (Reason: pain) pravastatin [Pravachol] 40 MG tablet 40 mg PO HS Qty: 0 warfarin [Coumadin] 7.5 MG tablet 7.5 mg PO QDAY Qty: 0 Referrals: Serenity Ferrari MD [Primary Care Provider] - Patient/Caregiver Discharge Instructions Discharge Activity: as per physical therapy Education Materials: AFL/Afib, Anatomy of the Brain, Discharge Instructions for Stroke Print Language: Polish Stand Alone Forms: Carol Award Info., Patient Portal Info Letter Discharge Order Discharge Orders: Discharge (Routine); Ordered 12/07/24 Ordered By: Valerie Myers Quality Discharge Quality Measures VTE prophylaxis (Eliquis ) Attestestation MD Attestation I reviewed labs, imaging, EKG, home medications and prior available records. Face to face evaluation was performed by me. I have personally examined the patient and discussed assessment and plan with the IM team. I reviewed the resident note and agree with the plan with exceptions as below. CVA symptoms Acute encephalopathy Right carotid stenosis Atrial fibrillation with controlled ventricular rate Status post permanent pacemaker Hypertensive urgency CHF EF 40 to 45% Acute UTI Hyperlipidemia Mental status improved Carotid ultrasound showed significant right carotid stenosis at 70% Repeat CT head showed no acute interval changes or bleed Could not do the MRI as the patient was not able to lie flat in bed Discussed with start Eliquis in addition to aspirin Continue atorvastatin Continue losartan, nifedipine, Lasix and spironolactone. Monitor BP P.o. Augmentin upon discharge Home health ordered Time spent is 40 minutes. More than 50% of the time was spent on patient education and coordination of care.
--- NOTE | 2024-12-07 14:16 | PC.NURSE ---
Discharge orders placed for patient, patient has not has bowel movement, Bonnie Han notified. Senna, Enema, and non-pharmacological measures taken. Patient ambulated 100ft with FWW and home o2 (Son brought from home). O2 remained above 92% with 2L NC while ambulating.
--- NOTE | 2024-12-07 14:25 | PC.SS ---
Rounding Note: Plan is to d/c the patient home with home health.
[2024-12-07] MEDS: carVEDILOL 3.125 MG TABLET 6.25 MG PO (17:51)
[2024-12-07] MEDS: NALOXEGOL OXALATE 25 MG TABLET (NON-FORMULARY) 12.5 MG PO (18:16)
--- NOTE | 2024-12-07 19:06 | PC.NURSE ---
Spoke with MD Mcarthur regarding Dialysis plan for 12/[address] with contrast today 12/07. MD Mcarthur stated that he planned on ordering dialysis for 12/08, Hospitalist update on plan.
--- NOTE | 2024-12-07 19:10 | PC.NURSE ---
Patient not discharged this shift, patient hasnt had BM since 12/03. MD Padilla notified. 2 enemas, senna, movantik given per order. Prune juice given and patient ambulated around unit as non pharmacological intervention. Patient states that she does not feel the urge. Bowel sounds active all 4 quadrants, abd non distended or tender.
[2024-12-07] MEDS: ATORVASTATIN CALCIUM 20 MG TABLET 40 MG PO (20:35)
--- NOTE | 2024-12-07 23:37 | PD.NEUROPROG ---
Documentation for date of: 12/07/24 Subjective Subjective Interval history: Patient was seen in Telemetry today with her at the bedside. Patient has not had the bowel movements after several treatment regimens. Her speech and language are improving, close to baseline. Exam - Neurology Vital Signs Temp Pulse Resp BP Pulse Ox O2 Del Method O2 Flow Rate 98.1 F 70 20 142/71 H 96 Nasal Cannula 2 12/07/24 20:00 12/07/24 20:00 12/07/24 20:00 12/07/24 20:00 12/07/24 20:00 12/07/24 20:00 12/07/24 20:00 Narrative Exam Gen: Well-developed and well-nourished in NAD HEENT: NCAT, PERRLA, EOMI, MMM, anicteric conjunctivae. CVS: normal S1 and S2. RRR. No M/R/G. Resp: CTA B/L. No rhonchi, rales, crackles or wheezing. Abd: soft, non-tender, non-distended. BS+ in all 4 quadrants. MSK: Good ROM in BUE & BLE. No edema or rash. Neuro: alert, awake, oriented x3, speech and language: improving almost close to baseline. CN II-XII grossly intact. Strength 5/5 in BUE & BLE. Gait: walked with a walker Psych: mood and affect normal Objective Labs 12/07/24 04:48 12/07/24 04:48 Labs: Laboratory Results - last 24 hr 12/07/24 04:48 WBC 11.8 H RBC 3.94 L Hgb 12.0 Hct 36.0 MCV 91 MCH 30.5 MCHC 33.3 RDW Std Deviation 42.2 Plt Count 344 Neut % (Auto) 68 Lymph % (Auto) 18 [place] % (Auto) 9 Eos % (Auto) 4 Baso % (Auto) 0 Neut # (Auto) 8.0 H Lymph # (Auto) 2.2 [place] # (Auto) 1.1 H Eos # (Auto) 0.4 Baso # (Auto) 0.1 Immature Gran # (Auto) 0.06 H Absolute Nucleated RBC 0.00 Immature Gran % 1 H Nucleated RBC % 0 Sodium 139 Potassium 4.6 Chloride 103 Carbon Dioxide 29.8 Anion Gap 6 L BUN 23 Creatinine 1.2 Estim Creat Clear Calc 38.4 L eGFR 44 L BUN/Creatinine Ratio 19 Glucose 108 H Calculated Osmolality 282 Calcium 9.0 Corrected Calcium 9.2 Phosphorus 3.8 Magnesium 1.9 Total Bilirubin 0.7 AST 19 ALT 9 L Alkaline Phosphatase 82 Total Protein 6.5 Albumin 3.7 Globulin 2.8 Albumin/Globulin Ratio 1.3 ABG Interpretation ABG results: 12/04/24 00:19 ABG pH 7.43 ABG pCO2 43 ABG pO2 61 L ABG HCO3 28 H ABG O2 Saturation 94 ABG Base Excess 4 H Assessment & Plan Assessment and plan (1) Cerebrovascular accident: Status: Acute Assessment and plan: presented with aphasia improving CT head: showed left frontal hypodensity, repeat study showing prominence, likely from edema Could not get MRI brain as she is claustrophobic and did not want to attempt with sedation EF: 45-50% continue Eliquis, asa 81 and statin stable from neuro stand point for d/c home fu in 2 weeks. (2) History of permanent cardiac pacemaker placement: Status: Acute Assessment and plan: MRI compatible, but patient refused (3) Hypertension: Status: Acute Assessment and plan: continue current meds, (4) Atrial fibrillation: Status: Acute Assessment and plan: with rate controlled and on eliquis (5) Renal cancer: Status: Acute Assessment and plan: by history will watch for change in neuro exam for possible ICH.
[2024-12-08] VITALS: BP 138/66; PULSE 70; RESP 16; TEMP 37.1; O2SAT 94
[2024-12-08 04:00] VITALS: BP 125/61; PULSE 70; RESP 20; TEMP 36.1; O2SAT 96
[2024-12-08 05:29] VITALS: BMI 39.2
--- NOTE | 2024-12-08 05:37 | PC.NURSE ---
Notified Quresh of patient having a bowl movement, and verified if patient is cleared to discharge home with current orders, MD said yes. Son available now and will picker operator patient.
--- NOTE | 2024-12-08 06:03 | PC.NURSE ---
Addendum entered by Petr Villarreal RN 12/08/24 06:04: all questions answered for discharge, home health to follow up with patient. Original Note: d/c home with son Froy Laird, all questions answered. Patient GCS 16 a/o situation
--- NOTE | 2024-12-09 09:36 | PC.CC ---
Addendum entered by Freeman Soriano RN 12/09/24 16:05: [facility] accepted the pt. Booked [facility]. Pending start of care date. Original Note: HH referral sent on [facility]. Awaiting responses. Pending start of care date.
--- NOTE | 2024-12-10 11:54 | PC.CC ---
[facility] SOC is 12/12/2024
== END 2024-12-08 06:00 | disposition home health service (06) | DRG 64 ==
LOC: SERX 12-04 00:59 → SERHOLD 12-04 01:54 → S2NX 12-04 05:17
PROVIDERS: Emergency Medicine; Admitting Provider Internal Medicine; PCP Family Medicine; Visit Provider Student in an Organized Health Care Education/Training Program
DX: I63.89 Other cerebral infarction (principal); G93.6 Cerebral edema; C64.9 Malignant neoplasm of unspecified kidney, except renal pelvis; I16.1 Hypertensive emergency; I48.20 Chronic atrial fibrillation, unspecified; I50.22 Chronic systolic (congestive) heart failure; G93.40 Encephalopathy, unspecified; N39.0 Urinary tract infection, site not specified; R47.01 Aphasia; I11.0 Hypertensive heart disease with heart failure; I48.91 Unspecified atrial fibrillation; I25.10 Atherosclerotic heart disease of native coronary artery without angina pectoris; E78.5 Hyperlipidemia, unspecified; G89.29 Other chronic pain; Z85.528 Personal history of other malignant neoplasm of kidney; Z87.891 Personal history of nicotine dependence; R29.810 Facial weakness; Z79.01 Long term (current) use of anticoagulants; Z66 Do not resuscitate; B96.20 Unspecified Escherichia coli [E. coli] as the cause of diseases classified elsewhere; Z85.51 Personal history of malignant neoplasm of bladder; Z95.0 Presence of cardiac pacemaker; I65.21 Occlusion and stenosis of right carotid artery; Z79.899 Other long term (current) drug therapy; Z87.440 Personal history of urinary (tract) infections; Z90.5 Acquired absence of kidney; R29.702 NIHSS score 2; Z96.649 Presence of unspecified artificial hip joint
CPT/HCPCS: 36415; 36600; 70450; 70496; 70498; 71045; 80053; 80061; 81001; 82803; 83036; 83735; 83880; 84100; 84439; 84443; 84484; 85025; 85610; 85730; 87077; 87086; 87186; 92507; 92523; 92610; 93005; 93306; 96374; 97162; 99291; A4649; J0360; J0696; J2270; J2405; J3475; J3490; J7030; Q9967; A9270; J1920